=== PATIENT | female | born 1950 | race African-American/Black ===

== ENCOUNTER 2016-12-09 01:36 | Inpatient (IN) | payer OTHER, MEDICARE ==
[2016-12-09] VITALS (41 sets, daily range): BP systolic 143–212; BP diastolic 76–124; PULSE 58–113; RESP 15–32; TEMP 97.6–98.4; O2SAT 93–98
[~2016-12-09] VITALS: Ht 160 cm; Wt 104.0 kg
--- NOTE | 2016-12-09 02:11 | PD ---
HPI Chief Complaint: Respiratory Symptoms Time Seen by Provider: 02:07 Travel History International Travel<30 days: No Contact w/Intl Traveler<30days: No Traveled to known affect area: No History of Present Illness HPI 66-year-old female with history of hypertension, presents to the ER today because she states that she woke up short of breath. She denies any chest pains , fevers, coughing, or any other symptoms. She denies any previous history of shortness of breath. Modifying Factors: None Associated Signs & Symptoms: Shortness of breath Risk Factors: None PFSH Past Medical History Hypertension: Yes Past Surgical History Surgical History: No Previous Surgery Social History Alcohol Use: No Tobacco Use: No Substance Use: No Allergies-Medications (Allergen,Severity, Reaction): Coded Allergies: No Known Allergies (Unverified , 12/09/16) Reported Meds & Prescriptions Reported Meds & Active Scripts Active No Active Prescriptions or Reported Medications Review of Systems Except as stated in HPI: all other systems reviewed are Neg Physical Exam Narrative GENERAL: Well-developed elderly -[place] female patient currently in mild respiratory distress. Awake and oriented 3. SKIN: Focused skin assessment warm/dry. HEAD: Atraumatic. Normocephalic. EYES: Pupils equal and round. No scleral icterus. No injection or drainage. ENT: No nasal bleeding or discharge. Mucous membranes pink and moist. NECK: Trachea midline. No JVD. CARDIOVASCULAR: Regular rate and rhythm. No murmur appreciated. RESPIRATORY: No accessory muscle use. Clear to auscultation. Breath sounds equal bilaterally. No crackles or wheezes. GASTROINTESTINAL: Abdomen soft, non-tender, nondistended. Hepatic and splenic margins not palpable. MUSCULOSKELETAL: No obvious deformities. No clubbing. No cyanosis. No edema. NEUROLOGICAL: Awake and alert. No obvious cranial nerve deficits. Motor grossly within normal limits. Normal speech. PSYCHIATRIC: Appropriate mood and affect; insight and judgment normal. Data Data Last Documented VS Vital Signs Date Time Temp Pulse Resp B/P Pulse Ox O2 Delivery O2 Flow Rate FiO2 12/09/16 03:08 89 16 209/104 96 Room Air 12/09/16 01:39 98.4 Orders Complete Blood Count With Diff (12/09/16 02:07) Comprehensive Metabolic Panel (12/09/16 02:07) B-Type Natriuretic Peptide (12/09/16 02:07) D-Dimer (12/09/16 02:07) Act Partial Throm Time (Ptt) (12/09/16 02:07) Prothrombin Time / Inr (Pt) (12/09/16 02:07) Ckmb (Isoenzyme) Profile (12/09/16 02:07) Troponin I (12/09/16 02:07) Iv Access Insert/Monitor (12/09/16 02:07) Electrocardiogram (12/09/16 02:07) Ecg Monitoring (12/09/16 02:07) Oximetry (12/09/16 02:07) Oxygen Administration (12/09/16 02:07) Chest, Single Ap (12/09/16 02:07) Sodium Chloride 0.9% Flush (Ns Flush) (12/09/16 02:15) Nitroglycerin 2% Oint (Nitroglycerin 2% (12/09/16 02:15) CKMB (12/09/16 02:15) CKMB% (12/09/16 02:15) Ct Pulmonary Angiogram (12/09/16 03:12) Iohexol 350 Inj (Omnipaque 350 Inj) (12/09/16 03:35) Aspirin (Aspirin) (12/09/16 04:00) Metoprolol Tartrate Inj (Lopressor Inj) (12/09/16 04:00) Labs Laboratory Tests Test 12/09/16 02:15 White Blood Count 18.5 TH/MM3 Red Blood Count 4.43 MIL/MM3 Hemoglobin 13.0 GM/DL Hematocrit 39.3 % Mean Corpuscular Volume 88.6 FL Mean Corpuscular Hemoglobin 29.3 PG Mean Corpuscular Hemoglobin 33.1 % Concent Red Cell Distribution Width 14.5 % Platelet Count 251 TH/MM3 Mean Platelet Volume 8.9 FL Neutrophils (%) (Auto) 20.8 % Lymphocytes (%) (Auto) 72.5 % Monocytes (%) (Auto) 5.6 % Eosinophils (%) (Auto) 0.7 % Basophils (%) (Auto) 0.4 % Neutrophils # (Auto) 3.8 TH/MM3 Lymphocytes # (Auto) 13.4 TH/MM3 Monocytes # (Auto) 1.0 TH/MM3 Eosinophils # (Auto) 0.1 TH/MM3 Basophils # (Auto) 0.1 TH/MM3 CBC Comment AUTO DIFF Differential Total Cells 100 Counted Neutrophils % (Manual) 26 % Lymphocytes % 66 % Monocytes % 6 % Eosinophils % 2 % Neutrophils # (Manual) 4.8 TH/MM3 Differential Comment FINAL DIFF MANUAL Atypical Lymphocytes % Platelet Estimate NORMAL Platelet Morphology Comment NORMAL [place] Bodies PRESENT Acanthocytes OCC Prothrombin Time 10.7 SEC Prothromb Time International 1.0 RATIO Ratio Activated Partial 28.7 SEC Thromboplast Time D-Dimer Quantitative (PE/DVT) 1.67 MG/L FEU Sodium Level 141 MEQ/L Potassium Level 3.7 MEQ/L Chloride Level 107 MEQ/L Carbon Dioxide Level 27.3 MEQ/L Anion Gap 7 MEQ/L Blood Urea Nitrogen 19 MG/DL Creatinine 0.95 MG/DL Estimat Glomerular Filtration 59 ML/MIN Rate Random Glucose 102 MG/DL Calcium Level 8.1 MG/DL Total Bilirubin 0.5 MG/DL Aspartate Amino Transf 26 U/L (AST/SGOT) Alanine Aminotransferase 22 U/L (ALT/SGPT) Alkaline Phosphatase 96 U/L Total Creatine Kinase 385 U/L Creatine Kinase MB 2.9 NG/ML Creatine Kinase MB % 0.8 % Troponin I 0.14 NG/ML B-Type Natriuretic Peptide 60 PG/ML Total Protein 7.7 GM/DL Albumin 3.5 GM/DL MDM Medical Decision Making Medical Screen Exam Complete: Yes Emergency Medical Condition: Yes Medical Record Reviewed: Yes Interpretation(s) EKG shows NSR, no ST elevation or depression, and no arrhythmias. No significant T-wave inversions. Laboratory Tests Test 12/09/16 02:15 White Blood Count 18.5 TH/MM3 (4.0-11.0) Lymphocytes (%) (Auto) 72.5 % (9.0-44.0) Lymphocytes # (Auto) 13.4 TH/MM3 (1.0-4.8) Monocytes # (Auto) 1.0 TH/MM3 (0-0.9) Lymphocytes % 66 % (9-44) Acanthocytes OCC (NORMAL) D-Dimer Quantitative (PE/DVT) 1.67 MG/L FEU (0.00-0.50) Blood Urea Nitrogen 19 MG/DL (7-18) Estimat Glomerular Filtration 59 ML/MIN (>89) Rate Calcium Level 8.1 MG/DL (8.5-10.1) Total Creatine Kinase 385 U/L (26-192) Troponin I 0.14 NG/ML (0.02-0.05) Last [address] Angiography 12/09/16311 Signed Impressions: Service Date/Time: November 03:23 - CONCLUSION: 1. No pulmonary embolus. 2. Left anterior descending coronary artery calcification. 3. Mild atelectasis and chronic interstitial changes of the visualized lung bases. 4. Eventration of the right hemidiaphragm. 5. Hepatic cysts. Jarrett Jimenez MD Chest X-Ray 12/09/167 Signed Impressions: Service Date/Time: November 02:24 - CONCLUSION: 1. Trace bibasilar atelectasis. No pneumonic infiltrate demonstrated. 2. Borderline cardiomegaly. 3. Tortuous thoracic aorta. 4. Age-indeterminate right hemidiaphragm elevation. Jarrett Jimenez MD Differential Diagnosis Shortness of breathanxiety versus dysrhythmias versus pneumonia versus bronchitis versus COPD versus CHF versus hypertensive urgency Narrative Course Lab work shows troponin elevations. EKG did not show any signs of acute ST-T elevations. Her dimer was fairly elevated. Aspirin and nitroglycerin had been given in the ER. Blood pressure did not respond significantly to nitroglycerin and metoprolol was also ordered. A CT was done to rule out PE and did not show any signs of PE. At this point, my plan would be to admit her for further treatment of her blood pressure elevations and evaluation for underlying cardiac issues related to her blood pressure, possible ID. Case was discussed with Dr. Cobian for admission. Diagnosis Primary Impression: Hypertensive urgency Additional Impression: Elevated troponin Admitting Information Admitting Physician Requests: Admit Scripts No Active Prescriptions or Reported Meds Alma Michelle MD Dec 09, 2016 02:11
[2016-12-09] MEDS ORDERED: NITROGLYCERIN 2% OINT 1 GM PACKET TOPICAL ONE (02:15)
--- NOTE | 2016-12-09 02:33 | RADRPT ---
EXAM DATE/TIME: 12/09/2016 02:24 [facility] COMPARISON: No previous studies available for comparison. INDICATIONS : Weak and general illness. MEDICAL HISTORY : Hypertension. SURGICAL HISTORY : None. ENCOUNTER: Initial ACUITY: 1 day PAIN SCORE: 0/10 LOCATION: Bilateral chest FINDINGS: I don't have any priors. Trace bibasilar atelectasis. Age-indeterminate elevation seen of the right h emidiaphragm. No infiltrate, effusion or pneumothorax. Heart size upper limits of normal. Thoracic aorta is tortuous. CONCLUSION: 1. Trace bibasilar atelectasis. No pneumonic infiltrate demonstrated. 2. Borderline cardiomegaly. 3. Tortuous thoracic aorta. 4. Age-indeterminate right hemidiaphragm elevation. Jarrett Jimenez MD on December 09, 2016 at 2:30 Board Certified Radiologist. This report was verified electronically.
[2016-12-09] MEDS: SODIUM CHLORIDE 0.9% FLUSH 10 ML FLUSH IVF PRN ×2 (02:40→04:18)
[2016-12-09 02:44] LABS: AUTOMATED NEUTROPHIL # 3.8 TH/MM3 (1.8-7.7); BASOPHIL # 0.1 TH/MM3 (0-0.2); BASOPHIL % 0.4 % (0.0-2.0); EOSINOPHIL # 0.1 TH/MM3 (0-0.4); EOSINOPHIL % 0.7 % (0.0-4.0); HEMATOCRIT 39.3 % (35.0-46.0); LYMPH % 72.5 % (9.0-44.0); LYMPHOCYTE # 13.4 TH/MM3 (1.0-4.8); MEAN CELL VOLUME 88.6 FL (80.0-100.0); MEAN CORPUSCULAR HEMOGLOBIN 29.3 PG (27.0-34.0); MEAN CORPUSCULAR HGB CONC 33.1 % (32.0-36.0); MONO % 5.6 % (0.0-8.0); NEUT % 20.8 % (16.0-70.0); PLATELET COUNT 251 TH/MM3 (150-450); RED BLOOD COUNT 4.43 MIL/MM3 (4.00-5.30); RED CELL DISTRIBUTION WIDTH 14.5 % (11.6-17.2); WHITE BLOOD COUNT 18.5 TH/MM3 (4.0-11.0)
[2016-12-09 02:45] LABS: HEMO FLAGS AUTO DIFF
[2016-12-09 02:47] LABS: ALT (GPT) 22 U/L (10-53); ANION GAP 7 MEQ/L (5-15); AST (GOT) 26 U/L (15-37); BICARBONATE 27.3 MEQ/L (21.0-32.0); BLOOD UREA NITROGEN 19 MG/DL (7-18); CHLORIDE 107 MEQ/L (98-107); GLOMERULAR FILTRATION RATE 59 ML/MIN (>89); SODIUM (NA) 141 MEQ/L (136-145)
[2016-12-09 02:48] LABS: POTASSIUM 3.7 MEQ/L (3.5-5.1)
[2016-12-09 02:54] LABS: ALKALINE PHOSPHATASE 96 U/L (45-117); CREATINE KINASE 385 U/L (26-192); TOTAL BILIRUBIN ADULT 0.5 MG/DL (0.2-1.0)
[2016-12-09 02:57] LABS: APTT (PATIENT) 28.7 SEC (24.3-30.1); PROTHROMBIN TIME - PATIENT 10.7 SEC (9.8-11.6)
[2016-12-09 03:06] LABS: CKMB 2.9 NG/ML (0.5-3.6)
[2016-12-09 03:18] LABS: EOSINOPHILS 2 % (0-4); NEUTROPHIL # MANUAL DIFF 4.8 TH/MM3 (1.8-7.7); POLYS (SEG NEUTROPHILS) 26 % (16-70); SCAN/DIFF FINAL DIFF MANUAL; WBC DIFF SAMPLE 100
[2016-12-09 03:20] LABS: ACANTHOCYTES OCC (NORMAL); HOWELL-JOLLY BODIES PRESENT (NONE SEEN); PLATELET ESTIMATE SMEAR NORMAL (NORMAL); PLATELET MORPHOLOGY NORMAL (NORMAL)
[2016-12-09] MEDS ORDERED: IOHEXOL 350 MG/ML 10 ML VIAL (for RAD DIAG) IV ONE (03:35)
--- NOTE | 2016-12-09 03:51 | RADRPT ---
EXAM DATE/TIME: 12/09/2016 03:23 [facility] COMPARISON: No previous studies available for comparison. INDICATIONS : Woke up short of breath IV CONTRAST: 75 cc Omnipaque 350 (iohexol) IV RADIATION DOSE: 23.08 CTDIvol (mGy) MEDICAL HISTORY : Hypertension. SURGICAL HISTORY : None. ENCOUNTER: Initial ACUITY: 1 day PAIN SCALE: 0/10 LOCATION: Bilateral chest TECHNIQUE: Volumetric scanning of the chest was performed using a pulmonary embolism protocol MIP images were re constructed. Using automated exposure control and adjustment of the mA and/or kV according to patien t size, radiation dose was kept as low as reasonably achievable to obtain optimal diagnostic quality images. FINDINGS: No pulmonary embolus. Heart size within normal limits. Coronary artery calcification noted of the left anterior descending. Mild atelectasis and chronic appearing interstitial changes are seen in both lung bases. No infiltrat e, effusion or pneumothorax. Right hemidiaphragm is eventrated. There is no mediastinal or hilar lymphadenopathy seen. Upper abdomen partly included on this study. There are cysts of the liver noted, the largest about 8. 6 cm near the dome of the right hepatic lobe. Most of the other cysts seen are small. CONCLUSION: 1. No pulmonary embolus. 2. Left anterior descending coronary artery calcification. 3. Mild atelectasis and chronic interstitial changes of the visualized lung bases. 4. Eventration of the right hemidiaphragm. 5. Hepatic cysts. Jarrett Jimenez MD on December 09, 2016 at 3:46 Board Certified Radiologist. This report was verified electronically.
[2016-12-09] MEDS ORDERED: ASPIRIN 325 MG TAB PO ONE (04:00)
[2016-12-09] MEDS ORDERED: METOPROLOL TARTRATE 5 MG/5 ML VIAL IV PUSH ONE (04:00)
[2016-12-09] MEDS ORDERED: NALOXONE HCL 0.4 MG/ML AMP IV PRN (04:45)
--- NOTE | 2016-12-09 05:04 | HHI.HP ---
[facility] No Primary Care Physician Admission Diagnosis hypertensive urgency/elevated troponin Diagnoses: Chief Complaint: "I just didn't feel right." labored breathing Travel History International Travel<30 Days: No Contact w/Intl Traveler <30 Da: No Traveled to Known Affected Are: No History of Present Illness Written by Sonia Baez, acting as scribe for Dr. Cobian on 12/09/16 at 04: 58. This is a 66 year old female patient with a past medical history which includes hypertension. Patient reports she currently does not have a primary care provider and has not on any medications on a daily basis. Patient reports that when she woke up around 0100 and she, "just didn't feel right." Patient reports that, "maybe my breathing was labored." "I guess my intuition had brought me here." Patient remains a throughout the interview process and offers no specific complaints. Denies headache, changes in vision, feeling light headed, dizziness, fevers, cough, N/V, chest pain, black stool, red stool, dysuria, frequent urination or diaphoresis. Blood pressure checked at bilateral upper extremities there is no significant difference noted. BP on arrival 212/124 heart rate 113, EKG reveals sinus rhythm first degree AV block rate 93 bpm with LVH Review of Systems ROS Limitations: Poor Historian Except as stated in HPI: all other systems reviewed are Neg Past Family Social History Past Medical History HTN Past Surgical History hysterectomy Reported Medications No Active Prescriptions or Reported Medications Allergies: Coded Allergies: No Known Allergies (Unverified , 12/09/16) Active Ordered Medications Current Medications Medications (Trade) Dose Ordered Sig/Saul Route Start Time Stop Time Status Last Admin (NS Flush) 2 ml UNSCH PRN IV FLUSH 12/09/16 04:45 (NS Flush) 2 ml BID IV FLUSH 12/09/16 09:00 (Narcan Inj) 0.4 mg UNSCH PRN IV 12/09/16 04:45 (Nitroglycerin 2% Oint) 1 inch Q6HR TOPICAL 12/09/16 06:00 (Lopressor Inj) 5 mg Q6H PRN IV PUSH 12/09/16 04:45 Family History HTN and DM runs in the family Social History Denies ETOH use, tobacco use or illicit drug use Physical Exam Vital Signs Vital Signs Date Time Temp Pulse Resp B/P Pulse Ox O2 Delivery O2 Flow Rate FiO2 12/09/16 03:08 89 16 209/104 96 Room Air 12/09/16 01:39 98.4 113 18 212/124 96 Room Air Physical Exam GENERAL: This is a well-nourished, well-developed patient, in no apparent distress. SKIN: No rashes, ecchymoses or lesions. Cool and dry. HEAD: Atraumatic. Normocephalic. No temporal or scalp tenderness. EYES: Extraocular motions intact. No scleral icterus. No injection or drainage. CARDIOVASCULAR: Regular rate and rhythm without murmurs, gallops, or rubs. RESPIRATORY: Clear to auscultation. Breath sounds equal bilaterally. No wheezes , rales, or rhonchi. GASTROINTESTINAL: Abdomen soft, non-tender, nondistended. No guarding. MUSCULOSKELETAL: Extremities without clubbing, cyanosis, or edema. No joint tenderness, effusion, or edema noted. No calf tenderness. Negative Homans sign bilaterally. NEUROLOGICAL: Awake and alert. No focal deficits noted. Motor and sensory grossly within normal limits. Five out of 5 muscle strength in all muscle groups. Normal speech. Laboratory Laboratory Tests Test 12/09/16 02:15 White Blood Count 18.5 Red Blood Count 4.43 Hemoglobin 13.0 Hematocrit 39.3 Mean Corpuscular Volume 88.6 Mean Corpuscular Hemoglobin 29.3 Mean Corpuscular Hemoglobin 33.1 Concent Red Cell Distribution Width 14.5 Platelet Count 251 Mean Platelet Volume 8.9 Neutrophils (%) (Auto) 20.8 Lymphocytes (%) (Auto) 72.5 Monocytes (%) (Auto) 5.6 Eosinophils (%) (Auto) 0.7 Basophils (%) (Auto) 0.4 Neutrophils # (Auto) 3.8 Lymphocytes # (Auto) 13.4 Monocytes # (Auto) 1.0 Eosinophils # (Auto) 0.1 Basophils # (Auto) 0.1 CBC Comment AUTO DIFF Differential Total Cells 100 Counted Neutrophils % (Manual) 26 Lymphocytes % 66 Monocytes % 6 Eosinophils % 2 Neutrophils # (Manual) 4.8 Differential Comment FINAL DIFF MANUAL Atypical Lymphocytes Platelet Estimate NORMAL Platelet Morphology Comment NORMAL [place] Bodies PRESENT Acanthocytes OCC Prothrombin Time 10.7 Prothromb Time International 1.0 Ratio Activated Partial 28.7 Thromboplast Time D-Dimer Quantitative (PE/DVT) 1.67 Sodium Level 141 Potassium Level 3.7 Chloride Level 107 Carbon Dioxide Level 27.3 Anion Gap 7 Blood Urea Nitrogen 19 Creatinine 0.95 Estimat Glomerular Filtration 59 Rate Random Glucose 102 Calcium Level 8.1 Total Bilirubin 0.5 Aspartate Amino Transf 26 (AST/SGOT) Alanine Aminotransferase 22 (ALT/SGPT) Alkaline Phosphatase 96 Total Creatine Kinase 385 Creatine Kinase MB 2.9 Creatine Kinase MB % 0.8 Troponin I 0.14 B-Type Natriuretic Peptide 60 Total Protein 7.7 Albumin 3.5 Result Diagram: 12/09/1621412/09/16214 Assessment and Plan Problem List: (1) Hypertensive urgency ICD Code: I16.0 Status: Acute (2) Elevated troponin ICD Code: R74.8 Status: Acute Assessment and Plan HTN urgency Patient has received metoprolol 5 mg IV push as well as nitroglycerin paste 1 inch with minimal improvement in blood pressure Will continue metoprolol IV and Nitropaste Also start hydralazine 10 mg IV every 30 minutes as needed for blood pressure greater than 170/90 Continue to monitor blood pressure trend Serial neuro checks elevated troponin likely related to hypertensive urgency r/o ACS Initial troponin 0.14 continue serial troponin serial EKG continuous cardiac produce runner D-dimer elevated at 1.67 CT angiogram negative for pulmonary embolism DVT prophylaxis with SCDs Discussed with ER provider, nursing and patient Physician Certification 2 Midnight Certification Type: Admission for Inpatient Services Order for Inpatient Services The services are ordered in accordance with Medicare regulations or non- Medicare payer requirements, as applicable. In the case of services not specified as inpatient-only, they are appropriately provided as inpatient services in accordance with the 2-midnight benchmark. Estimated LOS (days): 3 days is the estimated time the patient will need to remain in the hospital, assuming treatment plan goals are met and no additional complications. Post-Hospital Plan: Home Sonia Baez Dec 09, 2016 05:04
[2016-12-09] MEDS: SODIUM CHLORIDE 0.9% FLUSH 10 ML FLUSH IV FLUSH PRN ×2 (05:41→07:04)
[2016-12-09] MEDS: hydrALAZINE HCL 20 MG/ML VIAL IV PUSH PRN ×3 (05:41→14:45)
[2016-12-09] MEDS ORDERED: NITROGLYCERIN 2% OINT 1 GM PACKET TOPICAL SCH (06:00)
[2016-12-09] MEDS: METOPROLOL TARTRATE 5 MG/5 ML VIAL IV PUSH PRN (08:11)
[2016-12-09] MEDS: SODIUM CHLORIDE 0.9% FLUSH 10 ML FLUSH IV FLUSH SCH ×2 (08:11→21:00)
[2016-12-09] MEDS: LISINOPRIL 20 MG TAB PO SCH ×2 (09:00→10:25)
[2016-12-09 11:40] LABS: CKMB 2.8 NG/ML (0.5-3.6)
--- NOTE | 2016-12-09 11:51 | RADRPT ---
EXAM DATE/TIME: 12/09/2016 11:38 [facility] COMPARISON: CT PULMONARY ANGIOGRAM, December 09, 2016, 3:23. INDICATIONS : Hypertension. Rule out intercranial bleed. RADIATION DOSE: 36.42 CTDIvol (mGy) MEDICAL HISTORY : Hypertension. SURGICAL HISTORY : None. ENCOUNTER: Initial ACUITY: 1 day PAIN SCALE: 0/10 LOCATION: cranial TECHNIQUE: Multiple contiguous axial images were obtained of the head. Using automated exposure control and adj ustment of the mA and/or kV according to patient size, radiation dose was kept as low as reasonably a chievable to obtain optimal diagnostic quality images. FINDINGS: CEREBRUM: The ventricles are normal for age. No evidence of midline shift, mass lesion, hemorrhage or acute in farction. No extra-axial fluid collections are seen. POSTERIOR FOSSA: The cerebellum and brainstem are intact. The 4th ventricle is midline. The cerebellopontine angle i s unremarkable. EXTRACRANIAL: The visualized portion of the orbits is intact. SKULL: The calvaria is intact. No evidence of skull fracture. CONCLUSION: 1. No acute intracranial abnormality identified. Ty Castro MD on December 09, 2016 at 11:47 Board Certified Radiologist. This report was verified electronically.
--- NOTE | 2016-12-09 13:48 | EKG ---
Date Performed: 12/09/2016 Time Performed: 02:28:17 PTAGE: 66 years EKG: Sinus rhythm WITH FIRST DEGREE AV BLOCK BORDERLINE LEFT AXIS DEVIATION MINIMAL VOLTAGE CRITERIA FOR LVH, CONSIDER NORMAL VARIANT NONSPECIFIC T-WAVE ABNORMALITY ABNORMAL ECG NO PREVIOUS TRACING DOCTOR: Sasha Christian Interpretating Date/Time 12/09/2016 13:43:44
[2016-12-09] MEDS ORDERED: CHLORHEXIDINE GLUCONATE 2 % 1 PACK (2 CLOTHS)(extra cloths) TOPICAL PRN (14:30)
--- NOTE | 2016-12-09 14:33 | EKG ---
Date Performed: 12/09/2016 Time Performed: 10:54:03 PTAGE: 66 years EKG: Sinus rhythm WITH FIRST DEGREE AV BLOCK BORDERLINE LEFT AXIS DEVIATION MODERATE T-WAVE ABNORMALITY, CONSIDER ANTE ROLATERAL ISCHEMIA ABNORMAL ECG Compared to PREVIOUS TRACING , anterolateral T-wave changes are new. Acute myocardial ischemia needs to be excluded clinically. PREVIOUS TRACIN12/09/2016 02.28 DOCTOR: Sasha Christian Interpretating Date/Time 12/09/2016 14:31:06
--- NOTE | 2016-12-09 14:53 | HHI.PR ---
Addendum to Inpatient Note Addendum Reason: Additional Documentation Additional Information The pt was resting comfortably. She said she was feeling a lot better. She says she'll try not to add salt to her food. She said she had a headache which is much improved. Blood pressure remains elevated but is better. Continue lisinopril and titrate as needed. Hydralazine and Lopressor IV as needed. Discussed with ICU nurse. Javier Gracia DO Dec 09, 2016 14:53
[2016-12-09 18:01] LABS: CKMB 2.5 NG/ML (0.5-3.6)
[2016-12-10] VITALS (12 sets, daily range): BP systolic 129–190; BP diastolic 59–101; PULSE 65–89; RESP 13–28; TEMP 98.2–98.5; O2SAT 93–95
[2016-12-10] MEDS: CHLORHEXIDINE GLUCONATE 2 % 1 PACK (2 CLOTHS)(taper/protocol) TOPICAL SCH (04:00)
[2016-12-10 05:59] LABS: BASOPHIL % 0.4 % (0.0-2.0); EOSINOPHIL % 0.2 % (0.0-4.0); HEMATOCRIT 37.8 % (35.0-46.0); LYMPH % 48.4 % (9.0-44.0); LYMPHOCYTE # 6.4 TH/MM3 (1.0-4.8); MEAN CELL VOLUME 88.4 FL (80.0-100.0); MEAN CORPUSCULAR HEMOGLOBIN 29.1 PG (27.0-34.0); MEAN CORPUSCULAR HGB CONC 32.9 % (32.0-36.0); MONO % 5.9 % (0.0-8.0); NEUT % 45.1 % (16.0-70.0); PLATELET COUNT 241 TH/MM3 (150-450); RED BLOOD COUNT 4.28 MIL/MM3 (4.00-5.30); RED CELL DISTRIBUTION WIDTH 14.8 % (11.6-17.2); WHITE BLOOD COUNT 13.3 TH/MM3 (4.0-11.0)
[2016-12-10 06:10] LABS: HEMO FLAGS AUTO DIFF
[2016-12-10 06:22] LABS: BICARBONATE 26.7 MEQ/L (21.0-32.0); POTASSIUM 3.1 MEQ/L (3.5-5.1)
[2016-12-10 07:04] LABS: EOSINOPHILS 1 % (0-4); NEUTROPHIL # MANUAL DIFF 6.5 TH/MM3 (1.8-7.7); POLYS (SEG NEUTROPHILS) 49 % (16-70); WBC DIFF SAMPLE 100
[2016-12-10 07:05] LABS: HOWELL-JOLLY BODIES PRESENT (NONE SEEN); KERATOCYTES OCC (NORMAL); PLATELET ESTIMATE SMEAR NORMAL (NORMAL)
[2016-12-10 07:06] LABS: PLATELET MORPHOLOGY NORMAL (NORMAL); SCAN/DIFF FINAL DIFF MANUAL
[2016-12-10] MEDS: LISINOPRIL 20 MG TAB PO SCH (08:55)
[2016-12-10] MEDS: SODIUM CHLORIDE 0.9% FLUSH 10 ML FLUSH IV FLUSH SCH ×2 (08:55→21:00)
[2016-12-10] MEDS: POTASSIUM CHLOR 20 MEQ PREMIX 100 ML IV SCH ×2 (12:32→16:28)
--- NOTE | 2016-12-10 13:00 | HHI.PR ---
Subjective Remarks The patient was resting comfortably in bed. She says she feels a lot better compared to when she came to the hospital. She had no acute complaints. She said her neck was bothering her a little but that was from sleeping in a weird position and it's improving. Discussed with the patient and her family at the bedside. Objective Vitals Vital Signs Date Time Temp Pulse Resp B/P Pulse Ox O2 Delivery O2 Flow Rate FiO2 12/10/16 06:00 67 12/10/16 04:00 74 12/10/16 04:00 98.2 74 15 139/73 93 12/10/16 02:00 89 12/10/16 00:00 80 12/10/16 00:00 98.4 80 19 94 12/09/16 22:00 74 12/09/16 20:00 98.1 87 21 165/90 96 12/09/16 20:00 87 12/09/16 18:00 74 12/09/16 16:00 97.6 90 16 160/81 93 12/09/16 16:00 90 12/09/16 15:50 104 32 152/76 95 12/09/16 15:40 93 28 163/82 96 12/09/16 15:30 100 20 163/85 96 12/09/16 15:20 97 20 150/78 95 12/09/16 15:10 76 16 143/76 95 12/09/16 15:00 78 18 170/83 94 12/09/16 14:50 68 20 161/101 97 12/09/16 14:40 68 20 166/103 97 12/09/16 14:30 69 23 179/105 97 12/09/16 14:20 71 20 182/99 94 12/09/16 14:10 73 20 172/86 96 12/09/16 14:00 70 23 171/92 97 12/09/16 14:00 70 12/09/16 13:30 60 15 161/87 96 12/09/16 13:20 66 25 157/88 97 12/09/16 13:10 58 15 159/86 97 12/09/16 13:00 66 18 163/91 97 I/O 12/09/16 12/09/16 12/09/16 12/10/16 12/10/16 12/10/16 07:00 15:00 23:00 07:00 15:00 23:00 Intake Total 120 ml Output Total 500 ml 600 ml Balance -380 ml -600 ml Intake Oral 120 ml Output Urine Total 500 ml 600 ml # Voids 3 2 Result Diagram: 12/10/1652112/10/[address] Angiography 12/09/16311 Signed Impressions: Service Date/Time: November 03:23 - CONCLUSION: 1. No pulmonary embolus. 2. Left anterior descending coronary artery calcification. 3. Mild atelectasis and chronic interstitial changes of the visualized lung bases. 4. Eventration of the right hemidiaphragm. 5. Hepatic cysts. Jarrett Jimenez MD Chest X-Ray 12/09/167 Signed Impressions: Service Date/Time: November 02:24 - CONCLUSION: 1. Trace bibasilar atelectasis. No pneumonic infiltrate demonstrated. 2. Borderline cardiomegaly. 3. Tortuous thoracic aorta. 4. Age-indeterminate right hemidiaphragm elevation. Jarrett Jimenez MD Head CT 12/09/16 0000 Signed Impressions: Service Date/Time: November 11:38 - CONCLUSION: 1. No acute intracranial abnormality identified. Ty Castro MD Objective Remarks GENERAL: This is a well-nourished, well-developed patient, in no apparent distress. SKIN: No rashes, ecchymoses or lesions. Cool and dry. HEAD: Atraumatic. Normocephalic. No temporal or scalp tenderness. EYES: Extraocular motions intact. No scleral icterus. No injection or drainage. CARDIOVASCULAR: Regular rate and rhythm without murmurs, gallops, or rubs. RESPIRATORY: Clear to auscultation. Breath sounds equal bilaterally. No wheezes , rales, or rhonchi. GASTROINTESTINAL: Abdomen soft, non-tender, nondistended. No guarding. MUSCULOSKELETAL: Extremities without clubbing, cyanosis, or edema. No joint tenderness, effusion, or edema noted. NEUROLOGICAL: Awake and alert. No focal deficits noted. Motor and sensory grossly within normal limits. Five out of 5 muscle strength in all muscle groups. Normal speech. PSYCH: Mood and affect appropriate. Medications and IVs Current Medications Medications (Trade) Dose Ordered Sig/Saul Route Start Time Stop Time Status Last Admin (NS Flush) 2 ml UNSCH PRN IV FLUSH 12/09/16 04:45 12/09/16 07:04 (NS Flush) 2 ml BID IV FLUSH 12/09/16 09:00 12/10/16 08:55 (Narcan Inj) 0.4 mg UNSCH PRN IV 12/09/16 04:45 (Lopressor Inj) 5 mg Q6H PRN IV PUSH 12/09/16 04:45 12/09/16 08:11 (Apresoline Inj) 10 mg Q30M PRN IV PUSH 12/09/16 05:30 12/09/16 14:45 (Prinivil) 20 mg DAILY PO 12/09/16 08:30 12/10/16 08:55 Miscellaneous Information Patient in critical care unit? Ass... [id number] 12/09/16 14:30 12/09/16 14:20 (Chlorhexidine 2% Cloth) 3 pack DAILY@04 TOPICAL 12/10/16 04:00 12/14/16 04:01 12/10/16 04:00 Chlorhexidine Gluconate 3 pack 3 pack UNSCH PRN TOPICAL 12/09/16 14:30 12/14/16 14:18 (KCl 20 Meq Premix Inj) 100 ml @ 50 mls/hr Q2H IV 12/10/16 10:00 12/10/16 13:59 12/10/16 12:32 A/P Problem List: (1) Hypertensive urgency ICD Code: I16.0 Status: Acute (2) Elevated troponin ICD Code: R74.8 Status: Acute Assessment and Plan HTN urgency Blood pressure improved on lisinopril, however, still becomes elevated at times. - Will continue metoprolol IV and hydralazine IV as needed. - continue lisinopril 20 mg daily and increase as needed. - educated pt on lifestyle modifications. Elevated troponin Likely related to hypertensive urgency. Currently at 0.19. - repeat EKG. - continuous cardiac environmental monitoring technician. - blood pressure control. - cardiology consult requested. Leukocytosis Possibly a stress reaction. Decreasing. Afebrile. CXR and CT chest negative for infection. - check a UA. - continue to trend. Hypokalemia Unsure of etiology. - replete with IV KCl and monitor. D-dimer elevated at 1.67 CT angiogram negative for pulmonary embolism. - no further work-up. DVT prophylaxis with Lovenox Discharge Planning Awaiting cardiac evaluation and blood pressure improvement. Anticipate discharge in the morning Javier Gracia DO Dec 10, 2016 13:00
[2016-12-10] MEDS: METOPROLOL TARTRATE 5 MG/5 ML VIAL IV PUSH PRN (13:21)
[2016-12-10] MEDS ORDERED: PILL SPLITTER OTHER PRN (13:30)
[2016-12-10] MEDS ORDERED: LISINOPRIL 10 MG TAB PO ONE (14:00)
--- NOTE | 2016-12-10 15:32 | MB ---
cc: LASHAY VERDUZCO DATE OF CONSULTATION 12/10/16 DATE OF 1950 REASON FOR CONSULTATION Elevated troponins. HISTORY OF PRESENT ILLNESS 66-year-old female with past medical history significant for hypertension, that was admitted to the hospital with vague complaints. Found to have a hypertensive urgency. 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 She does not take any cardiac medications at home. Blood pressure on admission was over 200 systolic and 100 diastolic. She has been started on blood pressure medications with some improvement of the blood pressure, however, the blood pressure is still uncontrolled. Blood work here revealed mildly elevated troponin. Cardiology has been consulted for further management and evaluation. Review of systems negative except for what is mentioned in the HPI. PAST MEDICAL HISTORY past medical history of hypertension. PAST SURGICAL HISTORY Hysterectomy. ALLERGIES NO KNOWN DRUG ALLERGIES. MEDICATIONS Home medications none. FAMILY HISTORY Hypertension and diabetes. SOCIAL HISTORY Denies alcohol use, tobacco abuse or illicit drug use. PHYSICAL EXAMINATION VITAL SIGNS: Temperature 98, blood pressure 173/85, respiratory rate 20, heart rate 76, O2 sat 100% in room air. GENERAL: Awake, alert, oriented x3 in no acute distress. NECK: No JVD or carotid bruits. HEART: Regular rate, rhythm. No murmurs, rubs or gallops. LUNGS: Clear to auscultation bilaterally. No wheezes or rhonchi or rales. ABDOMEN: Soft, nontender, nondistended. Positive bowel sounds. Obese. EXTREMITIES: No cyanosis, mild +1 edema in the ankles DATA CBC, hemoglobin 12, hematocrit 37, white count 13.3, platelet count 241, INR 1. Electrolytes, sodium 142, potassium 3.1, BUN 11, creatinine 0.85. Troponin 0.15, 0.15 and 0.19. BNP 60. CARDIOLOGY STUDIES EKG normal sinus rhythm with nonspecific ST changes. ASSESSMENT/PLAN 66-year-old female admitted with hypertensive urgency with mildly elevated troponins. No EKG changes. No cardiac complaints. However, her blood pressure is still elevated. Her troponin are minimally elevated and in a plateau these likely due to demand ischemia from the hypertension urgency. No invasive cardiac workup recommended at this time. At this point I will agree to optimize blood pressure medications. Lisinopril should be increased to 40mg PO daily. Add hydrochlorothiazide 25mg p.o. daily, start Aspirin, order Lipid Profile and 2-D echocardiogram to assess LV systolic function. She will need a nuclear stress test to risk stratify for CAD, this can be done on outpatient basis. You can consider doing a renal ultrasound of the arteries if her blood pressure is not controlled after being optimizing three blood pressure medications, one of them being a diuretic. Thank you for the opportunity to take part in the care of this patient. Will follow with you. MD SRIKANTH Cooley/KATI /3:12 PM /3:22 PM MTDAnanya
--- NOTE | 2016-12-10 16:48 | EKG ---
Date Performed: 12/09/2016 Time Performed: 15:43:08 PTAGE: 66 years EKG: SINUS TACHYCARDIA WITH FIRST DEGREE AV BLOCK BORDERLINE LEFT AXIS DEVIATION MODERATE INTRAV ENTRICULAR CONDUCTION DELAY NONSPECIFIC T-WAVE ABNORMALITY ABNORMAL ECG PREVIOUS TRACING : 12/09/2016 10.54 Compared to prior tracing no significant change DOCTOR: Radha Schaeffer Interpretating Date/Time 12/10/2016 16:48:16
[2016-12-10] MEDS: ENOXAPARIN SODIUM 40 MG/0.4 ML SYRINGE SQ SCH (17:22)
[2016-12-10] MEDS: HYDROCHLOROTHIAZIDE 25 MG TAB PO SCH (17:22)
[2016-12-11] VITALS (18 sets, daily range): BP systolic 133–181; BP diastolic 66–97; PULSE 68–101; RESP 0–28; TEMP 98.2–99.2; O2SAT 90–95
[2016-12-11] MEDS: hydrALAZINE HCL 20 MG/ML VIAL IV PUSH PRN ×2 (00:17→09:05)
[2016-12-11] MEDS: CHLORHEXIDINE GLUCONATE 2 % 1 PACK (2 CLOTHS)(taper/protocol) TOPICAL SCH (04:00)
[2016-12-11 06:27] LABS: MEAN CELL VOLUME 88.5 FL (80.0-100.0); MEAN CORPUSCULAR HEMOGLOBIN 29.3 PG (27.0-34.0); MEAN CORPUSCULAR HGB CONC 33.1 % (32.0-36.0); PLATELET COUNT 249 TH/MM3 (150-450); RED BLOOD COUNT 4.52 MIL/MM3 (4.00-5.30); RED CELL DISTRIBUTION WIDTH 14.6 % (11.6-17.2); REVIEW FLAG FINAL; WHITE BLOOD COUNT 12.1 TH/MM3 (4.0-11.0)
[2016-12-11 06:50] LABS: BICARBONATE 25.1 MEQ/L (21.0-32.0); POTASSIUM 3.1 MEQ/L (3.5-5.1)
[2016-12-11 06:51] LABS: MAGNESIUM 2.1 MG/DL (1.5-2.5)
[2016-12-11] MEDS: HYDROCHLOROTHIAZIDE 25 MG TAB PO SCH (08:03)
[2016-12-11] MEDS: SODIUM CHLORIDE 0.9% FLUSH 10 ML FLUSH IV FLUSH SCH ×2 (08:03→21:00)
[2016-12-11] MEDS: LISINOPRIL 20 MG TAB PO SCH (08:04)
[2016-12-11] MEDS: POTASSIUM CHLOR 20 MEQ PREMIX 100 ML IV SCH ×2 (08:58→11:18)
[2016-12-11] MEDS ORDERED: LISINOPRIL 20 MG TAB PO SCH (09:00)
--- NOTE | 2016-12-11 09:40 | PD.CARD.PN ---
Subjective Subjective Remarks no overnight events no CV complaints Objective Medications Current Medications Medications (Trade) Dose Ordered Sig/Saul Route Start Time Stop Time Status Last Admin (NS Flush) 2 ml UNSCH PRN IV FLUSH 12/09/16 04:45 12/09/16 07:04 (NS Flush) 2 ml BID IV FLUSH 12/09/16 09:00 12/11/16 08:03 (Narcan Inj) 0.4 mg UNSCH PRN IV 12/09/16 04:45 (Lopressor Inj) 5 mg Q6H PRN IV PUSH 12/09/16 04:45 12/10/16 13:21 (Apresoline Inj) 10 mg Q30M PRN IV PUSH 12/09/16 05:30 12/11/16 09:05 Miscellaneous Information Patient in critical care unit? Ass... Q361D .XX 12/09/16 14:30 12/09/16 14:20 (Chlorhexidine 2% Cloth) 3 pack DAILY@04 TOPICAL 12/10/16 04:00 12/14/16 04:01 12/11/16 04:00 (Chlorhexidine 2% Cloth) 3 pack UNSCH PRN TOPICAL 12/09/16 14:30 12/14/16 14:18 (Lovenox Inj) 40 mg Q24H SQ 12/10/16 14:00 12/10/16 17:22 (Pill Splitter) 1 ea UNSCH PRN OTHER 12/10/16 13:30 Lisinopril 40 mg 40 mg DAILY PO 12/11/16 09:00 12/11/16 08:04 (KCl 20 Meq Premix Inj) 100 ml @ 50 mls/hr Q2H IV 12/11/16 09:00 12/11/16 12:59 12/11/16 08:58 Vital Signs / I&O Vital Signs Date Time Temp Pulse Resp B/P Pulse Ox O2 Delivery O2 Flow Rate FiO2 12/11/16 06:00 71 12/11/16 04:00 98.5 85 18 148/70 93 12/11/16 04:00 85 12/11/16 02:00 78 12/11/16 00:00 80 12/11/16 00:00 98.2 80 17 155/73 94 12/10/16 22:00 77 12/10/16 20:00 70 12/10/16 20:00 98.4 70 13 190/88 93 12/10/16 16:00 65 19 169/91 95 12/10/16 12:00 98.5 12/10/16 10:00 76 20 173/85 95 I/O 12/10/16 12/10/16 12/10/16 12/11/16 12/11/16 12/11/16 07:00 15:00 23:00 07:00 15:00 23:00 Intake Total 480 ml 417 ml 60 ml Output Total 600 ml Balance -600 ml 480 ml 417 ml 60 ml Intake Oral 480 ml 120 ml 60 ml IV Total 297 ml Output Urine Total 600 ml # Voids 2 3 2 3 # Bowel Movements 0 0 0 Physical Exam GENERAL: Well-nourished, well-developed patient. SKIN: Warm and dry. HEAD: Normocephalic. EYES: No scleral icterus. No injection or drainage. NECK: Supple, trachea midline. No JVD or lymphadenopathy. CARDIOVASCULAR: Regular rate and rhythm without murmurs, gallops, or rubs. RESPIRATORY: Breath sounds equal bilaterally. No accessory muscle use. GASTROINTESTINAL: Abdomen soft, non-tender, nondistended. EXTREMITIES: No cyanosis, or edema. NEUROLOGICAL: Awake, alert, and oriented x 3. Non-focal. Laboratory Laboratory Tests Test 12/10/16 12/10/16 12/11/16 10:53 17:29 04:27 Troponin I 0.19 NG/ML 0.18 NG/ML White Blood Count 12.1 TH/MM3 Red Blood Count 4.52 MIL/MM3 Hemoglobin 13.2 GM/DL Hematocrit 40.0 % Mean Corpuscular Volume 88.5 FL Mean Corpuscular Hemoglobin 29.3 PG Mean Corpuscular Hemoglobin 33.1 % Concent Red Cell Distribution Width 14.6 % Platelet Count 249 TH/MM3 Mean Platelet Volume 9.2 FL Sodium Level 141 MEQ/L Potassium Level 3.1 MEQ/L Chloride Level 104 MEQ/L Carbon Dioxide Level 25.1 MEQ/L Anion Gap 12 MEQ/L Blood Urea Nitrogen 12 MG/DL Creatinine 0.80 MG/DL Estimat Glomerular Filtration 87 ML/MIN Rate Random Glucose 87 MG/DL Calcium Level 8.8 MG/DL Magnesium Level 2.1 MG/DL Imaging Last Impressions CT Angiography 12/09/16311 Signed Impressions: Service Date/Time: November 03:23 - CONCLUSION: 1. No pulmonary embolus. 2. Left anterior descending coronary artery calcification. 3. Mild atelectasis and chronic interstitial changes of the visualized lung bases. 4. Eventration of the right hemidiaphragm. 5. Hepatic cysts. Jarrett Jimenez MD Chest X-Ray 12/09/16 0207 Signed Impressions: Service Date/Time: November 02:24 - CONCLUSION: 1. Trace bibasilar atelectasis. No pneumonic infiltrate demonstrated. 2. Borderline cardiomegaly. 3. Tortuous thoracic aorta. 4. Age-indeterminate right hemidiaphragm elevation. Jarrett Jimenez MD Head CT 12/09/16 0000 Signed Impressions: Service Date/Time: November 11:38 - CONCLUSION: 1. No acute intracranial abnormality identified. Ty Castro MD Assessment and Plan Problem List: (1) Hypertensive urgency Assessment and Plan: -Cont Lisinopril 40mg -Cont HCTZ 25mg PO daily -Start Norvasc 5mg PO daily -Start Aspirin 81mg PO daily -Echo Pending -Avoid electrolytes abnormalities -Lipid Profile (2) Elevated troponin Faisal-Eliezer Marroquin MD Dec 11, 2016 09:40
[2016-12-11] MEDS ORDERED: amLODIPine BESYLATE 5 MG TAB PO SCH (09:45)
[2016-12-11] MEDS ORDERED: ACETAMINOPHEN 325 MG TAB PO PRN (10:15)
[2016-12-11] MEDS: ASPIRIN EC 81 MG TABEC PO SCH (10:24)
[2016-12-11 10:28] LABS: HDL CHOLESTEROL 53.8 MG/DL (40.0-60.0)
--- NOTE | 2016-12-11 10:37 | ECHRPT ---
Indication: CORONARY ATHEROSCLEROSIS CONCLUSIONS Normal left ventricular size. Mild to moderate concentric left ventricular hypertrophy. The left ventricular systolic function is mildly reduced with an estimated ejection fraction in the range of 45- 50%. No regional wall motion abnormalities are present. Doppler parameters are consistent with impaired left ventricular relaxtion (grade 1 diastolic dysfun ction). BP: 173 / 85 HR: 76 Rhythm: Sinus MEASUREMENTS (Male / Female) Normal Values Technical Quality:Fair 2D ECHO LV Diastolic Diameter PLAX 5.6 cm 4.2 - 5.9 / 3.9 - 5.3 cm LV Systolic Diameter PLAX 4.6 cm IVS Diastolic Thickness 1.3 cm 0.6 - 1.0 / 0.6 - 0.9 cm LVPW Diastolic Thickness 1.3 cm 0.6 - 1.0 / 0.6 - 0.9 cm LV Relative Wall Thickness 0.5 LVOT Diameter 2.6 cm Aortic Root Diameter 3.7 cm LA Systolic Diameter LX 2.4 cm 3.0 - 4.0 / 2.7 - 3.8 cm M-MODE AV Cusp Separation MM 2.4 cm DOPPLER AV Peak Velocity 128.0 cm/s AV Peak Gradient 6.6 mmHg AV Mean Gradient 3.0 mmHg AV Velocity Time Integral 23.5 cm LVOT Peak Velocity 85.0 cm/s LVOT Peak Gradient 2.9 mmHg LVOT Velocity Time Integral 14.6 cm LVOT Cardiac Index 2890.6 cm/minm AV Area Cont Eq vti 3.3 cm AV Area Cont Eq pk 3.5 cm Mitral E Point Velocity 51.3 cm/s Mitral A Point Velocity 64.2 cm/s Mitral E to A Ratio 0.8 LV E' Lateral Velocity 7.4 cm/s Mitral E to LV E' Lateral Ratio 6.9 LV E' Septal Velocity 3.3 cm/s Mitral E to LV E' Septal Ratio 15.5 TR Peak Velocity 107.0 cm/s TR Peak Gradient 4.6 mmHg PV Peak Velocity 41.4 cm/s PV Peak Gradient 0.7 mmHg FINDINGS LEFT VENTRICLE Normal left ventricular size. Mild to moderate concentric left ventricular hypertrophy. The left ventricular systolic function is mildly reduced with an estimated ejection fraction in the range of 45- 50%. No regional wall motion abnormalities are present. Doppler parameters are consistent with impaired left ventricular relaxtion (grade 1 diastolic dysfun ction). RIGHT VENTRICLE The right ventriclar size is upper limits of normal. LEFT ATRIUM The left atrial size is mildly dilated. RIGHT ATRIUM The right atrial size is mildly dilated. ATRIAL SEPTUM The interatrial septum not well visualized. AORTA Mildly dilated proximal ascending aorta. MITRAL VALVE Structurally normal mitral valve. Trace mitral valve regurgitation. AORTIC VALVE Trileaflet aortic valve. Aortic valve sclerosis is present. No aortic valve regurgitation. TRICUSPID VALVE Structurally normal tricuspid valve. There is trace tricuspid valve regurgitation. Pulmonary arterial systolic pressure could not be estimated due to an insufficient tricuspid valve regurgitation doppler jet for measurement. PULMONARY VALVE No pulmonary valve regurgitation or stenosis. No pulmonary valve regurgitation. VESSELS The inferior vena cava was not well visualized. Eliezer Chery MD (Electronically Signed) Final Date:11 December 2016 10:36
--- NOTE | 2016-12-11 12:13 | HHI.PR ---
Subjective Remarks The patient had a headache earlier but went away with Tylenol. Otherwise no acute complaints. Per nursing she did report chest pain earlier and an EKG was done while cardiology was evaluating the patient. Objective Vitals Vital Signs Date Time Temp Pulse Resp B/P Pulse Ox O2 Delivery O2 Flow Rate FiO2 12/11/16 11:00 91 16 160/79 93 12/11/16 10:00 90 24 162/90 95 12/11/16 10:00 101 12/11/16 09:00 90 24 162/90 95 12/11/16 08:00 99.2 82 21 181/82 92 12/11/16 08:00 68 12/11/16 07:00 82 28 170/97 94 12/11/16 06:00 71 12/11/16 04:00 98.5 85 18 148/70 93 12/11/16 04:00 85 12/11/16 02:00 78 12/11/16 00:00 80 12/11/16 00:00 98.2 80 17 155/73 94 12/10/16 22:00 77 12/10/16 20:00 70 12/10/16 20:00 98.4 70 13 190/88 93 12/10/16 16:00 65 19 169/91 95 I/O 12/10/16 12/10/16 12/10/16 12/11/16 12/11/16 12/11/16 07:00 15:00 23:00 07:00 15:00 23:00 Intake Total 480 ml 417 ml 60 ml Output Total 600 ml Balance -600 ml 480 ml 417 ml 60 ml Intake Oral 480 ml 120 ml 60 ml IV Total 297 ml Output Urine Total 600 ml # Voids 2 3 2 3 # Bowel Movements 0 0 0 Result Diagram: 12/11/1642612/11/[address] Angiography 12/09/16311 Signed Impressions: Service Date/Time: November 03:23 - CONCLUSION: 1. No pulmonary embolus. 2. Left anterior descending coronary artery calcification. 3. Mild atelectasis and chronic interstitial changes of the visualized lung bases. 4. Eventration of the right hemidiaphragm. 5. Hepatic cysts. Jarrett Jimenez MD Chest X-Ray 12/09/167 Signed Impressions: Service Date/Time: November 02:24 - CONCLUSION: 1. Trace bibasilar atelectasis. No pneumonic infiltrate demonstrated. 2. Borderline cardiomegaly. 3. Tortuous thoracic aorta. 4. Age-indeterminate right hemidiaphragm elevation. Jarrett Jimenez MD Head CT 12/09/16 0000 Signed Impressions: Service Date/Time: November 11:38 - CONCLUSION: 1. No acute intracranial abnormality identified. Ty Castro MD Objective Remarks GENERAL: This is a well-nourished, well-developed patient, in no apparent distress. SKIN: No rashes, ecchymoses or lesions. Cool and dry. HEAD: Atraumatic. Normocephalic. No temporal or scalp tenderness. EYES: Extraocular motions intact. No scleral icterus. No injection or drainage. CARDIOVASCULAR: Regular rate and rhythm without murmurs, gallops, or rubs. RESPIRATORY: Clear to auscultation. Breath sounds equal bilaterally. No wheezes , rales, or rhonchi. GASTROINTESTINAL: Abdomen soft, non-tender, nondistended. No guarding. MUSCULOSKELETAL: Extremities without clubbing, cyanosis, or edema. No joint tenderness, effusion, or edema noted. NEUROLOGICAL: Awake and alert. No focal deficits noted. Motor and sensory grossly within normal limits. Five out of 5 muscle strength in all muscle groups. Normal speech. PSYCH: Mood and affect appropriate. Medications and IVs Current Medications Medications (Trade) Dose Ordered Sig/Saul Route Start Time Stop Time Status Last Admin (NS Flush) 2 ml UNSCH PRN IV FLUSH 12/09/16 04:45 12/09/16 07:04 (NS Flush) 2 ml BID IV FLUSH 12/09/16 09:00 12/11/16 08:03 (Narcan Inj) 0.4 mg UNSCH PRN IV 12/09/16 04:45 (Lopressor Inj) 5 mg Q6H PRN IV PUSH 12/09/16 04:45 12/10/16 13:21 (Apresoline Inj) 10 mg Q30M PRN IV PUSH 12/09/16 05:30 12/11/16 09:05 Miscellaneous Information Patient in critical care unit? Ass... Q361D .XX 12/09/16 14:30 12/09/16 14:20 (Chlorhexidine 2% Cloth) 3 pack DAILY@04 TOPICAL 12/10/16 04:00 12/14/16 04:01 12/11/16 04:00 (Chlorhexidine 2% Cloth) 3 pack UNSCH PRN TOPICAL 12/09/16 14:30 12/14/16 14:18 (Lovenox Inj) 40 mg Q24H SQ 12/10/16 14:00 12/10/16 17:22 (Pill Splitter) 1 ea UNSCH PRN OTHER 12/10/16 13:30 Lisinopril 40 mg 40 mg DAILY PO 12/11/16 09:00 12/11/16 08:04 (KCl 20 Meq Premix Inj) 100 ml @ 50 mls/hr Q2H IV 12/11/16 09:00 12/11/16 12:59 12/11/16 11:18 (Norvasc) 5 mg DAILY PO 12/11/16 09:45 12/11/16 10:24 (Ecotrin Ec) 81 mg DAILY PO 12/11/16 09:45 12/11/16 10:24 (Tylenol) 650 mg Q4H PRN PO 12/11/16 10:15 12/11/16 10:24 A/P Problem List: (1) Hypertensive urgency ICD Code: I16.0 Status: Acute (2) Elevated troponin ICD Code: R74.8 Status: Acute Assessment and Plan HTN urgency Blood pressure improved on lisinopril, however, still becomes elevated at times. Cardiology consult appreciated. - Will continue metoprolol IV and hydralazine IV as needed. - continue lisinopril 40 mg daily. D/c HCTZ s/t hypokalemia. Increase amlodipine to 10 mg daily. - educated pt on lifestyle modifications. Elevated troponin Likely related to hypertensive urgency. Currently at 0.19. Echo with EF 45-50% and grade 1 diastolic dysfunction. Repeat EKG without acute ischemic changes. LDL 141. - continuous cardiac monitoring specialist. - blood pressure control. - follow up with cardiology. Leukocytosis Possibly a stress reaction. Decreasing. Afebrile. CXR and CT chest negative for infection. Improving. - check a UA. - continue to trend. Hypokalemia Unsure of etiology. Exacerbated by HCTZ. - replete with IV KCl and monitor. - d/c HCTZ. D-dimer elevated at 1.67 CT angiogram negative for pulmonary embolism. - no further work-up. DVT prophylaxis with Lovenox Discharge Planning Awaiting further cardiac evaluation and blood pressure improvement Javier Gracia DO Dec 11, 2016 12:13
--- NOTE | 2016-12-11 12:14 | EKG ---
Date Performed: 12/10/2016 Time Performed: 14:24:03 PTAGE: 66 years EKG: Sinus rhythm MARKED LEFT AXIS DEVIATION NONSPECIFIC T-WAVE ABNORMALITY Since previous tracing, no significant zak nge noted ABNORMAL ECG PREVIOUS TRACING : 12/09/2016 15.43 DOCTOR: Silvino Perkins Interpretating Date/Time 12/11/2016 12:12:28
[2016-12-11] MEDS: ENOXAPARIN SODIUM 40 MG/0.4 ML SYRINGE SQ SCH (15:08)
[2016-12-11 17:02] LABS: BICARBONATE 25.9 MEQ/L (21.0-32.0); POTASSIUM 3.5 MEQ/L (3.5-5.1)
[2016-12-11] MEDS ORDERED: POTASSIUM CHLORIDE 25 MEQ EFFERVESCENT TAB PO ONE (17:30)
[2016-12-12] VITALS (9 sets, daily range): BP systolic 109–147; BP diastolic 57–85; PULSE 67–100; RESP 12–21; TEMP 98–98.6; O2SAT 90–95
[2016-12-12] MEDS: CHLORHEXIDINE GLUCONATE 2 % 1 PACK (2 CLOTHS)(taper/protocol) TOPICAL SCH (04:00)
[2016-12-12 05:50] LABS: HEMATOCRIT 40.2 % (35.0-46.0); MEAN CORPUSCULAR HEMOGLOBIN 29.3 PG (27.0-34.0); MEAN CORPUSCULAR HGB CONC 33.3 % (32.0-36.0); PLATELET COUNT 263 TH/MM3 (150-450); RED BLOOD COUNT 4.56 MIL/MM3 (4.00-5.30); RED CELL DISTRIBUTION WIDTH 14.3 % (11.6-17.2); REVIEW FLAG FINAL; WHITE BLOOD COUNT 10.4 TH/MM3 (4.0-11.0)
[2016-12-12 06:17] LABS: BICARBONATE 26.9 MEQ/L (21.0-32.0); MAGNESIUM 2.1 MG/DL (1.5-2.5); POTASSIUM 3.3 MEQ/L (3.5-5.1)
[2016-12-12] MEDS: ASPIRIN EC 81 MG TABEC PO SCH (08:45)
[2016-12-12] MEDS: SODIUM CHLORIDE 0.9% FLUSH 10 ML FLUSH IV FLUSH SCH (08:45)
[2016-12-12] MEDS: LISINOPRIL 20 MG TAB PO SCH (08:45)
[2016-12-12] MEDS ORDERED: POTASSIUM CHLORIDE 20 MEQ CONTROLLED RELEASE TAB PO SCH (09:00)
[2016-12-12] MEDS ORDERED: amLODIPine BESYLATE 5 MG TAB PO SCH (09:00)
--- NOTE | 2016-12-12 10:04 | PD.CARD.PN ---
Subjective Subjective Remarks no complaints no overnight events Objective Medications Current Medications Medications (Trade) Dose Ordered Sig/Saul Route Start Time Stop Time Status Last Admin (NS Flush) 2 ml UNSCH PRN IV FLUSH 12/09/16 04:45 12/09/16 07:04 (NS Flush) 2 ml BID IV FLUSH 12/09/16 09:00 12/12/16 08:45 (Narcan Inj) 0.4 mg UNSCH PRN IV 12/09/16 04:45 (Lopressor Inj) 5 mg Q6H PRN IV PUSH 12/09/16 04:45 12/10/16 13:21 (Apresoline Inj) 10 mg Q30M PRN IV PUSH 12/09/16 05:30 12/11/16 09:05 Miscellaneous Information Patient in critical care unit? Ass... Q361D .XX 12/09/16 14:30 12/09/16 14:20 (Chlorhexidine 2% Cloth) 3 pack DAILY@04 TOPICAL 12/10/16 04:00 12/14/16 04:01 12/12/16 04:00 (Chlorhexidine 2% Cloth) 3 pack UNSCH PRN TOPICAL 12/09/16 14:30 12/14/16 14:18 (Lovenox Inj) 40 mg Q24H SQ 12/10/16 14:00 12/11/16 15:08 (Pill Splitter) 1 ea UNSCH PRN OTHER 12/10/16 13:30 (Prinivil) 40 mg DAILY PO 12/11/16 09:00 12/12/16 08:45 (Ecotrin Ec) 81 mg DAILY PO 12/11/16 09:45 12/12/16 08:45 (Tylenol) 650 mg Q4H PRN PO 12/11/16 10:15 12/11/16 10:24 (Norvasc) 10 mg DAILY PO 12/12/16 09:00 12/12/16 08:45 (KCl) 40 meq Q4H PO 12/12/16 09:00 12/12/16 13:01 12/12/16 09:08 Vital Signs / I&O Vital Signs Date Time Temp Pulse Resp B/P Pulse Ox O2 Delivery O2 Flow Rate FiO2 12/12/16 06:00 79 12/12/16 04:00 98.2 72 16 109/57 92 6/25/17 04:00 72 12/12/16 02:00 78 12/12/16 00:00 85 12/12/16 00:00 98.6 88 18 147/82 90 12/11/16 22:00 85 12/11/16 20:00 89 12/11/16 20:00 98.4 88 20 159/85 93 12/11/16 18:00 79 17 136/66 93 12/11/16 18:00 79 12/11/16 17:00 80 16 177/90 92 12/11/16 16:00 99.0 81 19 133/69 92 12/11/16 16:00 81 12/11/16 15:00 83 15 139/74 92 12/11/16 14:00 77 15 149/74 91 12/11/16 14:00 77 12/11/16 13:00 93 20 151/78 93 12/11/16 12:00 98.6 80 0 137/71 90 12/11/16 12:00 80 12/11/16 11:00 91 16 160/79 93 I/O 12/11/16 12/11/16 12/11/16 12/12/16 12/12/16 12/12/16 07:00 15:00 23:00 07:00 15:00 23:00 Intake Total 60 ml 844 ml 240 ml 120 ml Output Total 300 ml 400 ml Balance 60 ml 544 ml -160 ml 120 ml Intake Oral 60 ml 444 ml 240 ml 120 ml IV Total 400 ml 0 ml Output Urine Total 300 ml 400 ml Stool Total 0 ml # Voids 3 2 3 # Bowel Movements 0 0 0 0 Physical Exam GENERAL: Well-nourished, well-developed patient. SKIN: Warm and dry. HEAD: Normocephalic. EYES: No scleral icterus. No injection or drainage. NECK: Supple, trachea midline. No JVD or lymphadenopathy. CARDIOVASCULAR: Regular rate and rhythm without murmurs, gallops, or rubs. RESPIRATORY: Breath sounds equal bilaterally. No accessory muscle use. GASTROINTESTINAL: Abdomen soft, non-tender, nondistended. EXTREMITIES: No cyanosis, or edema. NEUROLOGICAL: Awake, alert, and oriented x 3. Non-focal. Laboratory Laboratory Tests Test 12/11/16 12/12/16 16:01 05:32 Sodium Level 137 MEQ/L 138 MEQ/L Potassium Level 3.5 MEQ/L 3.3 MEQ/L Chloride Level 103 MEQ/L 103 MEQ/L Carbon Dioxide Level 25.9 MEQ/L 26.9 MEQ/L Anion Gap 8 MEQ/L 8 MEQ/L Blood Urea Nitrogen 12 MG/DL 16 MG/DL Creatinine 0.79 MG/DL 0.91 MG/DL Estimat Glomerular Filtration 88 ML/MIN 75 ML/MIN Rate Random Glucose 83 MG/DL 90 MG/DL Calcium Level 8.6 MG/DL 8.6 MG/DL White Blood Count 10.4 TH/MM3 Red Blood Count 4.56 MIL/MM3 Hemoglobin 13.4 GM/DL Hematocrit 40.2 % Mean Corpuscular Volume 88.0 FL Mean Corpuscular Hemoglobin 29.3 PG Mean Corpuscular Hemoglobin 33.3 % Concent Red Cell Distribution Width 14.3 % Platelet Count 263 TH/MM3 Mean Platelet Volume 8.1 FL Magnesium Level 2.1 MG/DL Assessment and Plan Problem List: (1) Hypertensive urgency Assessment and Plan: Cont current medical management Stable to d/c home from CV standpoint Start Statin F/U with cardiology upon discharge (2) Elevated troponin Eliezer Chery MD Dec 12, 2016 10:04
[2016-12-12] MEDS ORDERED: ATORVASTATIN 10 MG TAB PO SCH (11:00)
[2016-12-12] MEDS ORDERED: ASPI-99 PO (11:06)
[2016-12-12] MEDS ORDERED: LISI-515 PO (11:06)
[2016-12-12] MEDS ORDERED: AMLO5 PO (11:06)
[2016-12-12] MEDS ORDERED: LIPI10TA PO (11:06)
[2016-12-12] MEDS ORDERED: POTA-163 PO (11:06)
--- NOTE | 2016-12-12 11:08 | HHI.DCPOC ---
Discharge Care Plan Diagnosis: (1) Elevated troponin (2) Hypertensive urgency Goals to Promote Your Health * To prevent worsening of your condition and complications * To maintain your health at the optimal level Directions to Meet Your Goals Take your medications as prescribed Follow your dietary instruction Follow activity as directed Keep your appointments as scheduled Take your immunizations and boosters as scheduled If your symptoms worsen call your PCP, if no PCP go to Urgent Care Center or Emergency Room Smoking is Dangerous to Your Health. Avoid second hand smoke Call the 24-hour hour crisis hotline for domestic abuse at Javier Gracia DO Dec 12, 2016 11:07
--- NOTE | 2016-12-12 12:18 | EKG ---
Date Performed: 12/11/2016 Time Performed: 09:52:04 PTAGE: 66 years EKG: Sinus rhythm Left axis deviation QRS changes V3/V4 may be due to LVH but cannot rule out anterior infarct Since p revious tracing, no significant change noted Abnormal ECG PREVIOUS TRACING : 12/10/2016 14.24.03 DOCTOR: Silvino Perkins Interpretating Date/Time 12/12/2016 12:17:17
--- NOTE | 2016-12-12 13:43 | HHI.DS ---
Discharge Summary Admission Date Dec 09, 2016 at 04:31 Discharge Date: Dec 12, 2016 Admitting Diagnosis hypertensive urgency/elevated troponin (1) Hypertensive urgency ICD Code: I16.0 Diagnosis: Principal (2) Elevated troponin ICD Code: R74.8 Diagnosis: Principal Procedures None Brief History - From Admission Written by Sonia Baez, acting as scribe for Dr. Cobian on 12/09/16 at 04: 58. This is a 66 year old female patient with a past medical history which includes hypertension. Patient reports she currently does not have a primary care provider and has not on any medications on a daily basis. Patient reports that when she woke up around 0100 and she, "just didn't feel right." Patient reports that, "maybe my breathing was labored." "I guess my intuition had brought me here." Patient remains a throughout the interview process and offers no specific complaints. Denies headache, changes in vision, feeling light headed, dizziness, fevers, cough, N/V, chest pain, black stool, red stool, dysuria, frequent urination or diaphoresis. Blood pressure checked at bilateral upper extremities there is no significant difference noted. BP on arrival 212/124 heart rate 113, EKG reveals sinus rhythm first degree AV block rate 93 bpm with LVH CBC/BMP: 12/12/16 0532 12/12/16 0532 Significant Findings Laboratory Tests Test 12/09/16 12/10/16 12/10/16 12/10/16 17:11 05:22 10:53 17:29 Total Creatine Kinase 287 U/L (26-192) Troponin I 0.15 NG/ML 0.19 NG/ML 0.18 NG/ML (0.02-0.05) (0.02-0.05) (0.02-0.05) White Blood Count 13.3 TH/MM3 (4.0-11.0) Lymphocytes (%) (Auto) 48.4 % (9.0-44.0) Lymphocytes # (Auto) 6.4 TH/MM3 (1.0-4.8) Lymphocytes % 49 % (9-44) Keratocytes OCC (NORMAL) Potassium Level 3.1 MEQ/L (3.5-5.1) Chloride Level 108 MEQ/L (98-107) Estimat Glomerular Filtration 81 ML/MIN (>89) Rate Calcium Level 8.2 MG/DL (8.5-10.1) Test 12/11/16 12/11/16 12/12/16 04:27 16:01 05:32 White Blood Count 12.1 TH/MM3 (4.0-11.0) Potassium Level 3.1 MEQ/L 3.3 MEQ/L (3.5-5.1) (3.5-5.1) Estimat Glomerular Filtration 87 ML/MIN (>89) 88 ML/MIN (>89) 75 ML/MIN (>89) Rate Cholesterol Level 216 MG/DL (120-200) LDL Cholesterol 141 MG/DL (0-99) Imaging Last Impressions CT Angiography 12/09/16 0312 Signed Impressions: Service Date/Time: November 03:23 - CONCLUSION: 1. No pulmonary embolus. 2. Left anterior descending coronary artery calcification. 3. Mild atelectasis and chronic interstitial changes of the visualized lung bases. 4. Eventration of the right hemidiaphragm. 5. Hepatic cysts. Jarrett Jimenez MD Chest X-Ray 12/09/16 0207 Signed Impressions: Service Date/Time: November 02:24 - CONCLUSION: 1. Trace bibasilar atelectasis. No pneumonic infiltrate demonstrated. 2. Borderline cardiomegaly. 3. Tortuous thoracic aorta. 4. Age-indeterminate right hemidiaphragm elevation. Jarrett Jimenez MD Head CT 12/09/16 0000 Signed Impressions: Service Date/Time: November 11:38 - CONCLUSION: 1. No acute intracranial abnormality identified. Ty Castro MD PE at Discharge GENERAL: This is a well-nourished, well-developed patient, in no apparent distress. SKIN: No rashes, ecchymoses or lesions. Cool and dry. HEAD: Atraumatic. Normocephalic. No temporal or scalp tenderness. EYES: Extraocular motions intact. No scleral icterus. No injection or drainage. CARDIOVASCULAR: Regular rate and rhythm without murmurs, gallops, or rubs. RESPIRATORY: Clear to auscultation. Breath sounds equal bilaterally. No wheezes , rales, or rhonchi. GASTROINTESTINAL: Abdomen soft, non-tender, nondistended. No guarding. MUSCULOSKELETAL: Extremities without clubbing, cyanosis, or edema. No joint tenderness, effusion, or edema noted. NEUROLOGICAL: Awake and alert. No focal deficits noted. Motor and sensory grossly within normal limits. Five out of 5 muscle strength in all muscle groups. Normal speech. PSYCH: Mood and affect appropriate. Pt update on day of discharge The patient was feeling much better. She wanted to go home. She requested some nutrition information to help avoid high blood pressure. She said she no longer had a headache. Discussed with nursing. Hospital Course HTN urgency The pt received IV hydralazine and IV Lopressor as needed. She was started on lisinopril. Cardiology was consulted. Her lisinopril was increased to 40 mg daily. HCTZ was started but d/c s/t hypokalemia. Amlodipine was started. The pt will be discharged on lisinopril 40 mg and amlodipine 5 mg daily. She will follow up with her PCP and with cardiology. She was educated on lifestyle modifications. Elevated troponin Troponin peaked at 0.19. Echo with EF 45-50% and grade 1 diastolic dysfunction. Repeat EKG without acute ischemic changes. LDL 141. D-Dimer was elevated. CXR and CT chest negative for an acute process. She was started on a statin and ASA. Cardiology was consulted. She was monitored on continuous cardiac telemetry. She received blood pressure control. She will follow up with cardiology as an outpt. Hypokalemia Exacerbated by HCTZ, which was d/c. She says it is a chronic problem. She received repletion and will be d/c on KCl supplementation. Pt Condition on Discharge: Stable Discharge Disposition: Discharge Home Discharge Time: > 30 minutes Discharge Instructions DIET: Follow Instructions for: Heart Healthy Diet Activities you can perform: Weight Bearing as Alf Follow up Referrals: Cardiology - [address] Malone PCP Follow-up - 1 Week New Medications: Potassium Chloride ER (Potassium Chloride ER) 20 Meq Tab 20 MEQ PO DAILY Electrolyte Replacement #30 Ref 0 TAB Amlodipine (Norvasc) 5 Mg Tab 5 MG PO DAILY Blood Pressure Management #[address] (Adult Aspirin EC Low Strength) 81 Mg Tabec 81 MG PO DAILY Heart #30 TAB Atorvastatin (Lipitor) 10 Mg Tab 10 MG PO DAILY Cholesterol Management #30 TAB Lisinopril (Lisinopril) 20 Mg Tab 40 MG PO DAILY Blood Pressure Management #60 TAB Javier Gracia DO Dec 12, 2016 13:43
== END 2016-12-12 12:20 | disposition home or self-care (01) | DRG 305 ==
LOC: NEPE 01:36 → NEDA 04:31 → HIMN 07:10
PROVIDERS: ADMIT Hospitalist; ATTEND Hospitalist
DX: I16.0 Hypertensive urgency (principal); I24.8 Other forms of acute ischemic heart disease; I44.0 Atrioventricular block, first degree; I10 Essential (primary) hypertension; E87.6 Hypokalemia; Z79.899 Other long term (current) drug therapy; D72.829 Elevated white blood cell count, unspecified
CPT/HCPCS: 70450; 71010; 71275; 80048; 80053; 80061; 82550; 82552; 83735; 83880; 84484; 85007; 85027; 85379; 85610; 85730; 87641; 93005; 93306; 96374; J0360; J1650; J3480; Q9967

== ENCOUNTER 2017-01-15 04:15 | Emergency (ER) | payer OTHER, MEDICAID ==
[~2017-01-15] VITALS: Ht 160 cm; Wt 90.5 kg
[~2017-01-15 04:15] MED LIST: AMLO5 PO; ASPI-99 PO; LIPI10TA PO; LISI-515 PO; POTA-163 PO
[2017-01-15 04:17] VITALS: BP 182/90; PULSE 79; RESP 16; TEMP 98.5; O2SAT 96
[2017-01-15] MEDS ORDERED: LOSA100T PO (04:32)
[2017-01-15 05:28] VITALS: BP 172/84
[2017-01-15 05:29] VITALS: BP 171/86
--- NOTE | 2017-01-15 06:22 | PD ---
HPI Chief Complaint: Hypertension Time Seen by Provider: 06:18 Travel History International Travel<30 days: No Contact w/Intl Traveler<30days: No Traveled to known affect area: No History of Present Illness HPI 66-year-old female presents to the emergency department by private transportation for complaint of elevated blood pressure. Patient has history of hypertension and is prescribed multiple antihypertensive medications. Patient more recently has required adjustment of her medications and therefore routinely checks her blood pressure to monitor her medication effect. Patient states last evening her blood sugar pressures are running in the 160 systolic range and this morning upon awakening noted her blood pressure to be 180 mmHg systolic. Patient decided come to the emergency room for evaluation. Patient states she has had no discomfort or symptoms associated with blood pressure elevation. Patient denies any pain pain is 0/10 in intensity. Patient denies headache dizziness visual disturbance double vision loss of vision blurred vision facial weakness difficulty swallowing facial droop change in speech or confusion neck pain chest pain back pain jaw pain extremity pain palpitations shortness of breath orthopnea or dyspnea on exertion sweats nausea vomiting abdominal pain flank pain upper or lower extremity numbness tingling or weakness and denies ataxia of gait. Patient states she feels well but is concerned about her blood pressure elevation. Patient did require admission in November for hypertensive urgency. Patient was recently had lisinopril discontinued because it causes coughing and made her feel funny. Patient is taking no LEIDA inhibitor's. PFSH Past Medical History Narrative Medical Hypertension asthma CAD; hysterectomy; no tobacco; nursing notes reviewed Hx Anticoagulant Therapy: Yes (Aspirin) Arthritis: No Asthma: Yes Autoimmune Disease: No Anxiety: No Depression: No Heart Rhythm Problems: No Cancer: No High Cholesterol: No Chemotherapy: No Chest Pain: No Congestive Heart Failure: No COPD: No Cerebrovascular Accident: No Coronary Artery Disease: Yes Diabetes: No Endocrine: No Genitourinary: No Hiatal Hernia: No Hypertension: Yes Immune Disorder: No Kidney Stones: No Musculoskeletal: No Neurologic: No Psychiatric: No Reproductive: Yes (and is not aware) Respiratory: No Radiation Therapy: No Renal Failure: No Seizures: No Sickle Cell Disease: No Sleep Apnea: No Thyroid Disease: No Ulcer: No Tetanus Vaccination: Unknown Influenza Vaccination: No ?: Not Past Surgical History Abdominal Surgery: No AICD: No Arteriovenous Shunt: No Cardiac Surgery: No Ear Surgery: No Endocrine Surgery: No Eye Surgery: No Genitourinary Surgery: No Gynecologic Surgery: Yes Hysterectomy: Yes Insulin Pump: No Joint Replacement: No Oral Surgery: No Pacemaker: No Thoracic Surgery: No Social History Alcohol Use: No Tobacco Use: No Substance Use: No Allergies-Medications (Allergen,Severity, Reaction): Coded Allergies: No Known Allergies (Unverified , 01/15/17) Reported Meds & Prescriptions Reported Meds & Active Scripts Active Norvasc (Amlodipine Besylate) 5 Mg Tab 5 Mg PO DAILY Potassium Chloride ER (Potassium Chloride) 20 Meq Tab 20 Meq PO DAILY Lipitor (Atorvastatin Calcium) 10 Mg Tab 10 Mg PO DAILY Adult Aspirin EC Low Strength (Aspirin) 81 Mg Tabec 81 Mg PO DAILY Reported Losartan (Losartan Potassium) 100 Mg Tab 100 Mg PO DAILY Review of Systems Except as stated in HPI: all other systems reviewed are Neg Physical Exam Narrative GENERAL: Well-developed well-nourished female in no acute distress no respiratory distress SKIN: Warm and dry. HEAD: Normocephalic. EYES: No scleral icterus. No injection or drainage. NECK: Supple, trachea midline. No JVD or lymphadenopathy. CARDIOVASCULAR: Regular rate and rhythm without murmurs, gallops, or rubs. RESPIRATORY: Breath sounds equal bilaterally. No accessory muscle use. GASTROINTESTINAL: Abdomen soft, non-tender, nondistended. MUSCULOSKELETAL: No cyanosis, or edema. Radial dorsalis pedis pulses 2+ to palpation. BACK: Nontender without obvious deformity. No CVA tenderness. Data Data Last Documented VS Vital Signs Date Time Temp Pulse Resp B/P Pulse Ox O2 Delivery O2 Flow Rate FiO2 01/15/17 06:32 68 16 162/82 97 Room Air 01/15/17 04:17 98.5 Orders Clonidine (Catapres) (01/15/17 06:30) [facility] Medical Decision Making Medical Screen Exam Complete: Yes Emergency Medical Condition: Yes Medical Record Reviewed: Yes Differential Diagnosis Hypertension, accelerated hypertension, subtherapeutic antihypertensive therapy , anxiety Narrative Course Well-developed well-nourished and form 66-year-old female with history of hypertension presents due to asymptomatic elevation of blood pressure Patient with repeat blood pressure remains elevated therefore clonidine 0.1 mg administered by mouth @0 700 care signed over to oncoming physician Dr. Lugo Diagnosis Primary Impression: Hypertension Shama Medrano MD Jan 15, 2017 06:22
[2017-01-15] MEDS ORDERED: cloNIDine HCL 0.1 MG TAB PO ONE (06:30)
[2017-01-15 06:32] VITALS: BP 162/82; PULSE 68; RESP 16; O2SAT 97
[2017-01-15] MEDS ORDERED: CLON0.1T PO (07:14)
[2017-01-15 07:15] VITALS: BP 123/69; PULSE 69; RESP 18; O2SAT 99
--- NOTE | 2017-01-15 07:18 | PD ---
Physical Exam Date Seen by Provider: Jan 15, 2017 Narrative GENERAL: SKIN: Warm and dry. HEAD: Atraumatic. Normocephalic. EYES: Pupils equal and round. No scleral icterus. No injection or drainage. ENT: No nasal bleeding or discharge. Mucous membranes pink and moist. NECK: Trachea midline. No JVD. CARDIOVASCULAR: Regular rate and rhythm. RESPIRATORY: No accessory muscle use. Clear to auscultation. Breath sounds equal bilaterally. GASTROINTESTINAL: Abdomen soft, non-tender, nondistended. Hepatic and splenic margins not palpable. MUSCULOSKELETAL: Extremities without clubbing, cyanosis, or edema. No obvious deformities. NEUROLOGICAL: Awake and alert. No obvious cranial nerve deficits. Motor grossly within normal limits. Five out of 5 muscle strength in the arms and legs. Normal speech. PSYCHIATRIC: Appropriate mood and affect; insight and judgment normal. Data Data Last Documented VS Vital Signs Date Time Temp Pulse Resp B/P Pulse Ox O2 Delivery O2 Flow Rate FiO2 01/15/17 06:32 68 16 162/82 97 Room Air 01/15/17 04:17 98.5 Orders Clonidine (Catapres) (01/15/17 06:30) MDM Medical Record Reviewed: Yes Supervised Visit with [facility]: No Narrative Course received pt from dr klein, to follow on patients bp....at 0710 patient continues asymptomatic, and noted to have a sbp of 162 which is greatly decreased ffrom 180's....and now 129/83. will d/c home Diagnosis Primary Impression: Hypertension Qualified Code: I10 - Essential hypertension Patient Instructions: 2 Gram Sodium Diet (GEN), General Instructions, Hypertension (DC) Scripts Clonidine 0.1 Mg Tab0.1 Mg PO BID #6 TAB Ref 0 Prov:Bharath Lugo MD 01/15/17 Disposition: 01 DISCHARGE HOME Condition: Stable Bharath Lugo MD Jan 15, 2017 07:18
== END 2017-01-15 07:38 | disposition home or self-care (01) ==
LOC: NEPC 04:15
DX: I10 Essential (primary) hypertension (principal); J45.909 Unspecified asthma, uncomplicated; I25.10 Atherosclerotic heart disease of native coronary artery without angina pectoris; Z79.899 Other long term (current) drug therapy
CPT/HCPCS: 99283

== ENCOUNTER 2017-08-01 08:05 | Emergency (ER) | payer OTHER ==
[~2017-08-01 08:05] MED LIST changes: -ASPI-99 PO; +ASPI1TAB56 PO; +CLON0.1T PO; -LISI-515 PO; +LOSA100T PO
[2017-08-01 08:08] VITALS: BP 152/86; PULSE 83; RESP 14; TEMP 98.1; O2SAT 100
== END 2017-08-01 08:09 | disposition left against medical advice (07) ==
LOC: NED 08:05
DX: Z53.21 Procedure and treatment not carried out due to patient leaving prior to being seen by health care provider (principal)
CPT/HCPCS: 99281

== ENCOUNTER 2018-06-07 04:34 | Observation (INO) ==
--- NOTE | 2018-06-07 06:19 | XR ---
EXAM DATE: 06/07/2018 6:15 AM EST AGE/SEX: 67 years / Female INDICATIONS: Chest pain. CLINICAL DATA: This is the patient's initial encounter. Patient reports that signs and symptoms have been present for 1 day and indicates a pain score of 2/10. MEDICAL/SURGICAL HISTORY: Hypertension. None. [place] [facility] [place]. . FINDINGS: A single AP view of the chest demonstrates elevation right hemidiaphragm. Cardiomegaly. The cardiome diastinal contours are unremarkable. Osseous structures are intact. CONCLUSION: 1. Elevation right hemidiaphragm, stable. 2. Cardiomegaly. Electronically signed by: Andrzej Simons MD Board Certified Radiologist 06/07/2018 6:17 AM EST
--- NOTE | 2018-06-07 06:22 | ED ---
HPI General Chief complaint: Medical Clearance Stated complaint: Poss elevated BP Time Seen by Provider: 06/07/18 05:24 History of Present Illness HPI narrative: Patient is a 67-year-old female presents emergency department for chief complaint of elevated blood pressure. Patient states that she can tell when her blood pressure is elevated because she gets a discomfort in her chest as well as some heart palpitations. She states this happened to her intermittently. States she recently had a change in insurance and therefore is been stretching out her blood pressure medication as much as possible. She denies any chest pain denies any shortness of breath abdominal pain nausea vomiting decreased urination. States symptoms started this morning, have been intermittent in the past, associated signs symptoms and context as above. Related Data Previous Rx's Medication Instructions Recorded aspirin 324 mg PO DAILY 30 Days #120 tab 06/07/18 losartan 25 mg PO DAILY 30 Days #30 tab 06/07/18 Allergies Allergy/AdvReac Type Severity Reaction Status Date / Time No Known Allergies Allergy Verified 06/07/18 04:37 Review of Systems ROS: all other systems reviewed are negative [facility] Medical History Medical History Hypertension (Acute) Social History Social History Substance History: No History of Abuse Second Hand Smoke Exposure: No Smoking Status: Never smoker How Often Do You Have a Drink Containing Alcohol: Never Recent Travel in [facility] within the Last 8 Weeks: No Recent Out of Country Travel within the Last 8 Weeks: No Immunization History Tetanus Immunization: >5 Years Exam Narrative Exam Narrative: GENERAL: Well-developed well-nourished, no obvious distress per SKIN: Focused skin assessment warm/dry. HEAD: Atraumatic. Normocephalic. EYES: Pupils equal and round. No scleral icterus. No injection or drainage. ENT: No nasal bleeding or discharge. Mucous membranes pink and moist. NECK: Trachea midline. No JVD. CARDIOVASCULAR: Regular rate and rhythm. No murmur appreciated. No murmurs gallops or rubs, 2+ bilateral equal pulses in all 4 extremities. RESPIRATORY: No accessory muscle use. Clear to auscultation. Breath sounds equal bilaterally. GASTROINTESTINAL: Abdomen soft, non-tender, nondistended. Hepatic and splenic margins not palpable. MUSCULOSKELETAL: No obvious deformities. No clubbing. No cyanosis. No edema. NEUROLOGICAL: Awake and alert. No obvious cranial nerve deficits. Motor grossly within normal limits. Normal speech. PSYCHIATRIC: Appropriate mood and affect; insight and judgment normal. Course Initial Documented Vital Signs Temperature 97.8 F 06/07/18 04:37 Pulse Rate 91 H 06/07/18 04:37 Respiratory Rate 16 06/07/18 04:37 Blood Pressure 195/99 H 06/07/18 04:37 Pulse Oximetry 96 06/07/18 04:37 Last Documented Vital Signs Temperature 97.8 F 06/07/18 04:37 Pulse Rate 69 06/07/18 06:49 Respiratory Rate 18 06/07/18 06:49 Blood Pressure 159/96 H 06/07/18 06:49 Pulse Oximetry 96 06/07/18 06:49 Medical Decision Making MDM Narrative Medical decision making narrative: Patient room to the emergency department, mild chest discomfort led her to take her blood pressure this morning which is elevated and then she came into the emergency department her blood pressure is improving without intervention. Given the chest discomfort and EKG basic labs including troponin been ordered. Initially for signout the patient's chemistry including troponin returned just prior to shift change. Troponin is elevated 0.19. Reviewed the previous records and the patient's November 2016 visit for hypertensive urgency led to a cardiology consult for elevated troponins at that time. It is recommended that she have an outpatient stress test and she was deemed stable for discharge after blood pressure was under control. The patient states that she thinks she had a stress test but states she never received the results from it. Her blood pressure has resolved without intervention here, her troponin is elevated suggesting that she may have some coronary artery disease that needs addressing. I discussed with her that the risks of unresolved coronary artery disease and elevated troponins include and permanent disability. Patient verbalized understanding and accepted the risks and expressed her wish to leave AGAINST MEDICAL ADVICE. When asked why she did not have a reason. The patient' s blood pressure medication will be refilled for a month and the patient was recommended to take an aspirin 325 mg daily and follow-up with a oracle sql developer at her earliest convenience. She was urged to return the emergency department anytime she felt like she needed additional evaluation. Medical Screen Exam Complete: Yes Emergency Medical Condition: Yes Lab Data Result diagrams: 06/07/18 06:09 06/07/18 06:09 Lab Results 06/07/18 06/07/18 Range/Units 06:09 06:09 WBC 12.0 H (4.0-11.0) th/mm3 RBC 4.34 (4.00-5.30) mil/mm3 Hgb 13.3 (11.6-15.3) gm/dL Hct 40.2 (35.0-46.0) % MCV 92.7 (80.0-100.0) fL MCH 30.8 (27.0-34.0) pg MCHC 33.2 (32.0-36.0) % RDW 14.3 (11.6-17.2) % Plt Count 279 (150-450) th/mm3 MPV 7.9 (7.0-11.0) fL Prelim Diff (Auto) Slide review pending Neut % (Auto) 22.2 (16.0-70.0) % Lymph % (Auto) 70.2 H (9.0-44.0) % Dougherty % (Auto) 5.2 (0.0-8.0) % Eos % (Auto) 1.8 (0.0-4.0) % Baso % (Auto) 0.6 (0.0-2.0) % Neut # (Auto) 2.7 (1.8-7.7) th/mm3 Lymph # (Auto) 8.4 H (1.0-4.8) th/mm3 Dougherty # (Auto) 0.6 (0.0-0.9) th/mm3 Eos # (Auto) 0.2 (0.0-0.4) th/mm3 Baso # (Auto) 0.1 (0.0-0.2) th/mm3 Differential Comment . Sodium 139 (136-145) meq/L Potassium 3.7 (3.5-5.1) meq/L Chloride 106 (98-107) meq/L Carbon Dioxide 26.3 (21.0-32.0) meq/L Anion Gap 7 (5-15) meq/L BUN 25 H (7-18) mg/dL Creatinine 1.33 H (0.50-1.00) mg/dL Estimated GFR 48 L (>89) mL/min Random Glucose 96 (74-106) mg/dL Calcium 8.3 L (8.5-10.1) mg/dL Total Bilirubin 0.4 (0.2-1.0) mg/dL AST 21 (15-37) U/L ALT 19 (10-53) U/L Alkaline Phosphatase 87 (45-117) U/L Troponin I 0.12 H (0.02-0.05) ng/mL Total Protein 8.4 H (6.4-8.2) g/dL Albumin 3.8 (3.4-5.0) g/dL Imaging Data Radiologist's impression: Chest X-Ray 06/07/18 05:58 CONCLUSION: 1. Elevation right hemidiaphragm, stable. 2. Cardiomegaly. Discharge Plan Discharge Disposition Patient Disposition: Against Medical Advice Discharge Order Discharge Orders: AMA Discharge (Routine); Ordered 06/07/18 Ordered By: Dillan Smalls Discharge Details Diagnosis: Chest discomfort, Elevated troponin I level Physicians Team ED Provider: Dillan Smalls Primary Care Provider: UNKNOWN, Rxs /Orders / Referrals /Forms Prescriptions: Continue losartan 25 mg Tablet 25 mg PO DAILY 30 Days Qty: 30 RF: 0 Changed aspirin 81 mg Tablet,Chewable 324 mg PO DAILY 30 Days Qty: 120 RF: 0 Referrals: [facility] [Outside] - 3 Days Justice Deluca DO [Physician] - 3 Days Discharge Interventions Interventions: Vital Signs Last Done: 06/07/18 05:27 Status ED Status: With Doctor
[2018-06-07 06:24] LABS: Baso # (Auto) 0.1 th/mm3 (0.0-0.2); Baso % (Auto) 0.6 % (0.0-2.0); Eos # (Auto) 0.2 th/mm3 (0.0-0.4); Eos % (Auto) 1.8 % (0.0-4.0); Hematocrit 40.2 % (35.0-46.0); Hemoglobin 13.3 gm/dL (11.6-15.3); Lymph # (Auto) 8.4 th/mm3 (1.0-4.8); Lymph % (Auto) 70.2 % (9.0-44.0); Mean Corpuscular HGB Conc 33.2 % (32.0-36.0); Mean Corpuscular Hemoglobin 30.8 pg (27.0-34.0); Mean Corpuscular Volume 92.7 fL (80.0-100.0); Mean Platelet Volume 7.9 fL (7.0-11.0); Mono # (Auto) 0.6 th/mm3 (0.0-0.9); Mono % (Auto) 5.2 % (0.0-8.0); Neut # (Auto) 2.7 th/mm3 (1.8-7.7); Neut % (Auto) 22.2 % (16.0-70.0); Platelet Count 279 th/mm3 (150-450); Red Blood Count 4.34 mil/mm3 (4.00-5.30); Red Cell Distribution Width 14.3 % (11.6-17.2)
[2018-06-07 06:50] VITALS: RESP 18
[2018-06-07 06:51] LABS: Alanine Aminotransferase 19 U/L (10-53); Albumin 3.8 g/dL (3.4-5.0); Anion Gap 7 meq/L (5-15); Aspartate Aminotransferase 21 U/L (15-37); Blood Urea Nitrogen 25 mg/dL (7-18); Calcium 8.3 mg/dL (8.5-10.1); Carbon Dioxide 26.3 meq/L (21.0-32.0); Chloride 106 meq/L (98-107); Glomerular Filtration Rate 48 mL/min (>89); Glucose,Random 96 mg/dL (74-106); Potassium 3.7 meq/L (3.5-5.1); Sodium 139 meq/L (136-145)
[2018-06-07 06:55] LABS: Alkaline Phosphatase 87 U/L (45-117); Total Protein 8.4 g/dL (6.4-8.2); Troponin I 0.12 ng/mL (0.02-0.05)
[2018-06-07 07:27] LABS: Eosinophils 3 % (0-4); Lymphocytes 72 % (9-44); Monocytes 2 % (0-8)
[2018-06-07 07:28] LABS: Acanthocytes Occ; Howell-Jolly Bodies Present; Platelet Estimate Normal (Normal); Platelet Morphology Normal (Normal)
[2018-06-07] MEDS ORDERED: Bisacodyl 10 MG Supp RECTAL PRN (08:06)
[2018-06-07] MEDS ORDERED: Acetaminophen 325 MG Tablet PO PRN (08:06)
[2018-06-07] MEDS ORDERED: Heparin - SQ 10,000 UNITS/ML Vial SQ SCH (08:15)
[2018-06-07] MEDS ORDERED: Senna/Docusate Sodium 8.6/50 MG Tablet PO SCH (09:00)
[2018-06-07] MEDS ORDERED: amLODIPine 5 MG Tablet PO SCH (09:00)
[2018-06-07 09:11] LABS: Troponin I 0.12 ng/mL (0.02-0.05)
[2018-06-07 09:23] LABS: CKMB Percent 0.8 % (0.0-4.0); Creatine Kinase MB 1.8 ng/mL (0.5-3.6)
[2018-06-07 12:15] VITALS: BP 158/82; PULSE 66; TEMP 97.6; O2SAT 98
--- NOTE | 2018-06-07 12:22 | P.HPIM ---
History of Present Illness Primary Care Physician: UNKNOWN Chief Complaint: Chest pressure History of Present Illness: 67-year-old female with history of hypertension presents with "elevated blood pressure" and tightness in the left chest. Patient states she has not taken her blood pressure pills for 2-3 days because she did not feel like it, and today started to have some left-sided chest pressure and not feeling well, and she knew it was because her blood pressures were elevated, she took 1 of her pills but still felt poorly so came to the emergency room. Patient was found to have a systolic blood pressure over 200. She denies any headache visual changes dizziness shortness of breath radiation of chest tightness into her arm or jaw. Patient's blood pressures were improved in the emergency room and her symptoms have resolved. Patient was noted to have trace elevation of troponins, which she has had in the past. She states she has had a stress test in the past which was negative for angina. PMhx: Hypertension PSXhx: Lumpectomy left breast benign SOChx: Denies tobacco, denies alcohol FAMhx: Mother of throat cancer, father of unknown causes Review of Systems Review of Systems: all other systems reviewed are negative [facility] Medical History Medical History Hypertension (Acute) Social History Social History Substance History: No History of Abuse Second Hand Smoke Exposure: No Smoking Status: Never smoker How Often Do You Have a Drink Containing Alcohol: Never Recent Travel in [facility] within the Last 8 Weeks: No Recent Out of Country Travel within the Last 8 Weeks: No Immunization History Tetanus Immunization: >5 Years Medications and Allergies Allergies Allergy/AdvReac Type Severity Reaction Status Date / Time No Known Allergies Allergy Verified 06/07/18 04:37 Active Medications: Active Medications Acetaminophen (Tylenol) 650 mg PO Q4H PRN PRN Reason: Temp > 100.4 Al Hydroxide/Mg Hydroxide (Milk Of Magngiuliano Liq) 30 ml PO Q12H PRN PRN Reason: Mild Constipation Amlodipine Besylate (Norvasc) 5 mg PO DAILY [facility] Last Admin: 06/07/18 08:36 Dose: 5 mg Aspirin (Ecotrin) 162 mg PO DAILY [facility] Last Admin: 06/07/18 08:36 Dose: 162 mg Bisacodyl (Dulcolax Supp) 10 mg RECTAL DAILY PRN PRN Reason: SEVERE CONSITIPATION Heparin Sodium (Porcine) (Heparin Inj) 5,000 units SQ Q12H [facility] Last Admin: 06/07/18 08:36 Dose: 5,000 units Lactulose (Lactulose Liq) 30 ml PO DAILY PRN PRN Reason: SEVERE CONSITIPATION Ondansetron HCl (Zofran Inj) 4 mg IV.PUSH Q6H PRN PRN Reason: NAUSEA OR VOMITING Senna/Docusate Sodium (Angelica-Colace) 1 tab PO BID [facility] Last Admin: 06/07/18 08:36 Dose: Not Given Sennosides (Senokot) 17.2 mg PO Q12H PRN PRN Reason: Moderate Constipation Sodium Chloride (Ns Flush) 2 ml IV.FLUSH UNSCH PRN PRN Reason: FLUSH AFTER USING IV ACCESS Sodium Chloride (Ns Flush) 2 ml IV.FLUSH BID [facility] Last Admin: 06/07/18 08:37 Dose: 2 ml Sodium Chloride (Ns Flush) 2 ml IV.FLUSH PRN PRN PRN Reason: FLUSH AFTER USING IV ACCESS Physical Exam Vital signs: Last Vital Signs Temp 97.6 F 06/07/18 12:12 Pulse 66 06/07/18 12:12 Resp 18 06/07/18 12:12 BP 158/82 H 06/07/18 12:12 Pulse Ox 98 06/07/18 12:12 Intake & Output 06/05/18 06/06/18 06/07/18 06/08/18 06:59 06:59 06:59 06:59 Weight 90.718 kg GEN well-developed well-nourished 67-year-old -Italian female awake alert oriented to person time and place, pleasant in no acute distress, fluent speech HEENT normocephalic atraumatic, Pupils equal reactive, sclerae anicteric, extraocular motion intact, mucosa is moist. posterior pharynx clear without exudate, no gum lip dental lesions noted NECK supple no JVD trachea midline thyroid smooth not enlarged ANT CHEST WALL without mass or tenderness to palpation HEART S1-S2 regular without murmur gallops or clicks LUNGS clear to auscultation without wheeze rales or rhonchi , full symmetric expansion BACK exam is no CVA tenderness or mass ABDOMEN soft nondistended positive bowel sounds no guarding rebound rigidity LYMPH NODES no cervical, axillary or inguinal adenopathy noted EXTREMITIES no clubbing cyanosis or significant edema, peripheral pulses palpable +2 NEUROLOGIC cranial nerves II through XII appear grossly intact, strength is 5 out of 5 symmetrical no clonus or rigidity SKIN warm and dry with good turgor, no other rash or sores noted Results Labs CBC & Chem 7: 06/07/18 06:09 06/07/18 06:09 Imaging Impressions Chest X-Ray 06/07/18 05:58 CONCLUSION: 1. Elevation right hemidiaphragm, stable. 2. Cardiomegaly. Caprini VTE Risk Assessment Caprini VTE Risk Assessment: Moderate/High Risk (score >= 2) Caprini Risk Assessment Model: Point Value = 1 Point Value = 2 Point Value = 3 Point Value = 5 Age 41-60 Minor surgery BMI > 25 kg/m2 Swollen legs Varicose veins or History of unexplained or recurrent spontaneous Oral contraceptives or hormone replacement Sepsis (< 1 month) Serious lung disease, including pneumonia (< 1 month) Abnormal pulmonary function Acute myocardial infarction Congestive heart failure (< 1 month) History of inflammatory bowel disease Medical patient at bed rest Age 61-74 Arthroscopic surgery Major open surgery (> 45 min) Laparoscopic surgery (> 45 min) Malignancy Confined to bed (> 72 hours) Immobilizing plaster cast Central venous access Age >= 75 History of VTE Family history of VTE Factor V Leiden Prothrombin [id number] Lupus anticoagulant Anticardiolipin antibodies Elevated serum homocysteine Heparin-induced thrombocytopenia Other congenital or acquired thrombophilia Stroke (< 1 month) Elective arthroplasty Hip, pelvis, or leg fracture Acute spinal cord injury (< 1 month) Prophylaxis Regimen: Total Risk Factor Score Risk Level Prophylaxis Regimen 0-1 Low Early ambulation 2 Moderate Order ONE of the following: *Sequential Compression Device (SCD) *Heparin 5000 units SQ BID 3-4 Higher Order ONE of the following medications: *Heparin 5000 units SQ TID *Enoxaparin/Lovenox 40 mg SQ daily (WT < 150 kg, CrCl > 30 mL/min) *Enoxaparin/Lovenox 30 mg SQ daily (WT < 150 kg, CrCl > 10-29 mL/min) *Enoxaparin/Lovenox 30 mg SQ BID (WT < 150 kg, CrCl > 30 mL/min) AND/OR *Sequential Compression Device (SCD) 5 or more Highest Order ONE of the following medications: *Heparin 5000 units SQ TID (Preferred with Epidurals) *Enoxaparin/Lovenox 40 mg SQ daily (WT < 150 kg, CrCl > 30 mL/min) *Enoxaparin/Lovenox 30 mg SQ daily (WT < 150 kg, CrCl > 10-29 mL/min) *Enoxaparin/Lovenox 30 mg SQ BID (WT < 150 kg, CrCl > 30 mL/min) AND *Sequential Compression Device (SCD) Assessment and Plan Plan HYPERTENSIVE EMERGENCY - much better controlled, cont bp control. Medical noncompliance, counseled at length re compliance with medication, bp monitoring and followup TAVARES - likely mild prerenal and realted to uncontrolled htn TROPONIN ELEVATION, not acs, related to uncontrolled bp and tavares likely, discussed if troponins are negative ok to dc home later today for outpt followup ok to dc home for outpt follow up if last set of cardiac enzymes are stable. discussed w patient follow up w pcp. H&P: Quality VTE Deep Vein Thrombosis/Pulmonary Embolism Present on Admission: No
[2018-06-07 13:43] LABS: Troponin I 0.11 ng/mL (0.02-0.05)
[2018-06-07 13:58] LABS: CKMB Percent 0.8 % (0.0-4.0); Creatine Kinase MB 1.6 ng/mL (0.5-3.6)
--- NOTE | 2018-06-07 15:47 | ECG ---
Date Performed: 06/07/2018 Time Performed: 06:13:15 PTAGE: 67 years EKG: Sinus rhythm WITH OCCASIONAL SUPRAVENTRICULAR PREMATURE COMPLEXES MODERATE INTRAVENTRICULAR CONDUCTION DELAY Sinc e the previous tracing, no significant change noted BORDERLINE ECG PREVIOUS TRACING : 12/11/2016 09.52 DOCTOR: Radha Schaeffer Interpretating Date/Time 06/07/2018 15:45:13
== END 2018-06-07 14:56 | disposition home or self-care (01) ==
LOC: NEDA 04:34 → NEPE 04:34 → NEDA 12:01 → NEPHCDU 12:06
PROVIDERS: ADMIT Internal Medicine; ATTEND Internal Medicine

== ENCOUNTER 2018-08-10 22:45 | Observation (INO) ==
--- NOTE | 2018-08-10 23:24 | ED ---
HPI General Chief Complaint: Hypertension Stated Complaint: High BP Time Seen by Provider: 08/10/18 23:08 Source: patient Mode of arrival: ambulatory Limitations: no limitations History of Present Illness HPI narrative: 68-year-old female presents for evaluation of 2 days of pressure in her chest. Patient states that she felt a pressure sensation in her chest starting yesterday, and she gets this when her blood pressure is elevated, so she checked her blood pressure and it was elevated with systolics in the 180s- 190s. Patient was seen for similar symptoms in May. She denies shortness of breath or diaphoresis. Onset (ago): day(s) (1) Duration: intermittent Onset: during rest Pain location: Reports left chest Severity: mild Quality: Reports other (pressure) Pain radiation: Reports none Relieving factors: medication-other (losartan, clonidine) Exacerbating factors: nothing Associated symptoms: Denies nausea, vomiting, diaphoresis, dyspnea, syncope, palpitations, fever, cough and leg swelling Treatments prior to arrival chest pain: Reports none Related Data Previous Rx's Medication Instructions Recorded aspirin 325 mg PO DAILY #30 tab 06/07/18 losartan 100 mg PO DAILY 30 Days #30 tab 08/11/18 metoprolol tartrate 25 mg PO BID 30 Days #60 tab 08/11/18 pravastatin 40 mg PO DAILY 30 Days #30 tab 08/11/18 Allergies Allergy/AdvReac Type Severity Reaction Status Date / Time No Known Allergies Allergy Verified 08/10/18 05:35 Review of Systems ROS: all other systems reviewed are negative [facility] Medical History Medical History History of hysterectomy (Acute) Hypertension (Acute) Social History Social History Substance History: No History of Abuse Second Hand Smoke Exposure: No Smoking Status: Never smoker How Often Do You Have a Drink Containing Alcohol: Never Recent Travel in [facility] within the Last 8 Weeks: No Recent Out of Country Travel within the Last 8 Weeks: No Immunization History Tetanus Immunization: Unsure Exam Narrative Exam Narrative: GENERAL: Awake, alert, no acute distress SKIN: Focused skin assessment warm/dry. HEAD: Atraumatic. Normocephalic. EYES: Pupils equal and round. No scleral icterus. No injection or drainage. ENT: No nasal bleeding or discharge. Mucous membranes pink and moist. NECK: Trachea midline. No JVD. CARDIOVASCULAR: Regular rate and rhythm. No murmur appreciated. RESPIRATORY: No accessory muscle use. Clear to auscultation. Breath sounds equal bilaterally. GASTROINTESTINAL: Abdomen soft, non-tender, nondistended. Hepatic and splenic margins not palpable. MUSCULOSKELETAL: No obvious deformities. No clubbing. No cyanosis. No edema. NEUROLOGICAL: Awake and alert. No obvious cranial nerve deficits. Motor grossly within normal limits. Normal speech. PSYCHIATRIC: Appropriate mood and affect; insight and judgment normal. Course Initial Documented Vital Signs Temperature 97.7 F 08/10/18 22:49 Pulse Rate 67 08/10/18 22:49 Respiratory Rate 18 08/10/18 22:49 Blood Pressure 188/91 H 08/10/18 22:49 Pulse Oximetry 95 08/10/18 22:49 Last Documented Vital Signs Temperature 97.9 F 08/11/18 15:20 Pulse Rate 69 08/11/18 15:20 Respiratory Rate 18 08/11/18 12:00 Blood Pressure 140/81 08/11/18 15:20 Pulse Oximetry 95 08/11/18 12:00 Critical Care Time Critical Care Time: Yes Total Critical Care Time: 30 Attestation: Aggregate critical care time was 30 minutes. Time to perform other separately billable procedures was not included in the critical care time. My time did not include minutes spent treating any other patients simultaneously or on activities that did not directly contribute to the patient's treatment. The services I provided to this patient were to treat and/or prevent clinically significant deterioration that could result in: Myocardial infarction, CVA, I provided critical care services requiring my management, as noted below: Chart data review, documentation time, medication orders and management, vital sign assessments/reviewing monitor data, ordering and reviewing lab tests, ordering and interpreting/reviewing x-rays and diagnostic studies, care of the patient and discussion of the patient with the admitting physicians. Medical Decision Making MDM Narrative Medical decision making narrative: 68-year-old female initially presented with complaint of hypertension, however upon further questioning patient states "I knew my blood pressure was high because I got pressure in my chest, and this happens when her blood pressure is high". Will transfer patient to monitored bed for ACS rule out. Will check EKG, troponins, chest x-ray. No leg pain or swelling, recent travel, recent surgery so I do not suspect pulmonary embolism. Patient accepted in transfer of care for management of hypertensive crisis and to assess complaint of chest pain with cardiac enzymes EKG rule out acute coronary syndrome/GA; patient with similar presentation 06/07/18 Patient administered nitroglycerin with good blood pressure response; patient with renal insufficiency essentially unchanged from May; troponin I is again elevated at 0.1 most likely reflects strain of uncontrolled hypertension. Patient is prescribed aspirin clonidine and losartan, states compliant; poorly controlled blood pressure Call placed to medicine service for observation admission Medical Screen Exam Complete: Yes Emergency Medical Condition: Yes Differential Diagnosis Differential Diagnosis: Hypertensive crisis, chest pain, ACS, GA, dissection, CVA, ICH Medical Records Medical records reviewed: Yes I reviewed the patient's medical records. Lab Data Lab results reviewed: Yes I reviewed the patient's lab results. Result diagrams: 08/10/18 23:50 08/10/18 23:50 Lab Results 08/10/18 08/10/18 08/11/18 Range/Units 23:50 23:50 00:40 WBC 13.5 H (4.0-11.0) th/mm3 RBC 4.53 (4.00-5.30) mil/mm3 Hgb 13.5 (11.6-15.3) gm/dL Hct 41.5 (35.0-46.0) % MCV 91.8 (80.0-100.0) fL MCH 29.9 (27.0-34.0) pg MCHC 32.6 (32.0-36.0) % RDW 13.6 (11.6-17.2) % Plt Count 277 (150-450) th/mm3 MPV 8.0 (7.0-11.0) fL Prelim Diff (Auto) Slide review pending Neut % (Auto) 19.8 (16.0-70.0) % Lymph % (Auto) 73.2 H (9.0-44.0) % [place] % (Auto) 5.3 (0.0-8.0) % Eos % (Auto) 1.1 (0.0-4.0) % Baso % (Auto) 0.6 (0.0-2.0) % Neut # (Auto) 2.7 (1.8-7.7) th/mm3 Lymph # (Auto) 9.9 H (1.0-4.8) th/mm3 [place] # (Auto) 0.7 (0.0-0.9) th/mm3 Eos # (Auto) 0.1 (0.0-0.4) th/mm3 Baso # (Auto) 0.1 (0.0-0.2) th/mm3 WBC Differential Manual diff final Seg Neuts % (Manual) 16 (16-70) % Lymphocytes % (Manual) 68 H (9-44) % Atypical Lymphs % (Man) 11 H (0-0) % Monocytes % (Manual) 3 (0-8) % Eosinophils % (Manual) 2 (0-4) % Abs Neuts (Manual) 2.2 (1.8-7.7) th/mm3 Differential Comment . Platelet Estimate Normal (Normal) Platelet Morphology Normal (Normal) [place] Bodies Present H (None) Acanthocytes (Spur) Occ H (None) Keratocytes Occ H (None) PT 10.4 (9.8-11.6) sec INR 1.0 Ratio APTT 21.2 L (23.4-31.7) sec Sodium 138 (136-145) meq/L Potassium 4.3 (3.5-5.1) meq/L Chloride 104 (98-107) meq/L Carbon Dioxide 25.9 (21.0-32.0) meq/L Anion Gap 8 (5-15) meq/L BUN 25 H (7-18) mg/dL Creatinine 1.26 H (0.50-1.00) mg/dL Estimated GFR 51 L (>89) mL/min Random Glucose 77 (74-106) mg/dL Calcium 8.6 (8.5-10.1) mg/dL Total Bilirubin 0.8 (0.2-1.0) mg/dL AST 29 (15-37) U/L ALT 16 (10-53) U/L Alkaline Phosphatase 81 (45-117) U/L Troponin I 0.10 H (0.02-0.05) ng/mL Total Protein 8.5 H (6.4-8.2) g/dL Albumin 4.0 (3.4-5.0) g/dL 08/11/18 08/11/18 Range/Units 03:10 11:34 WBC (4.0-11.0) th/mm3 RBC (4.00-5.30) mil/mm3 Hgb (11.6-15.3) gm/dL Hct (35.0-46.0) % MCV (80.0-100.0) fL MCH (27.0-34.0) pg MCHC (32.0-36.0) % RDW (11.6-17.2) % Plt Count (150-450) th/mm3 MPV (7.0-11.0) fL Prelim Diff (Auto) Neut % (Auto) (16.0-70.0) % Lymph % (Auto) (9.0-44.0) % [place] % (Auto) (0.0-8.0) % Eos % (Auto) (0.0-4.0) % Baso % (Auto) (0.0-2.0) % Neut # (Auto) (1.8-7.7) th/mm3 Lymph # (Auto) (1.0-4.8) th/mm3 [place] # (Auto) (0.0-0.9) th/mm3 Eos # (Auto) (0.0-0.4) th/mm3 Baso # (Auto) (0.0-0.2) th/mm3 WBC Differential Seg Neuts % (Manual) (16-70) % Lymphocytes % (Manual) (9-44) % Atypical Lymphs % (Man) (0-0) % Monocytes % (Manual) (0-8) % Eosinophils % (Manual) (0-4) % Abs Neuts (Manual) (1.8-7.7) th/mm3 Differential Comment Platelet Estimate (Normal) Platelet Morphology (Normal) [place] Bodies (None) Acanthocytes (Spur) (None) Keratocytes (None) PT (9.8-11.6) sec INR Ratio APTT (23.4-31.7) sec Sodium (136-145) meq/L Potassium (3.5-5.1) meq/L Chloride (98-107) meq/L Carbon Dioxide (21.0-32.0) meq/L Anion Gap (5-15) meq/L BUN (7-18) mg/dL Creatinine (0.50-1.00) mg/dL Estimated GFR (>89) mL/min Random Glucose (74-106) mg/dL Calcium (8.5-10.1) mg/dL Total Bilirubin (0.2-1.0) mg/dL AST (15-37) U/L ALT (10-53) U/L Alkaline Phosphatase (45-117) U/L Troponin I 0.10 H 0.15 H (0.02-0.05) ng/mL Total Protein (6.4-8.2) g/dL Albumin (3.4-5.0) g/dL Imaging Data Radiologist's impression: Chest X-Ray 08/10/18 23:16 CONCLUSION: Mild cardiomegaly. Clear lungs. ECG Data EKG Prior to Arrival: No Attestation: I personally reviewed and interpreted this ECG as follows: (EKG normal sinus rhythm rate 67 interval conduction delay no acute ST elevation essentially unchanged from prior study 05/2018) Prior ECG tracings: available for review Discharge Plan Discharge Disposition Patient Disposition: ED Admit(ED Internal Use Only) Discharge Condition Condition: Stable Discharge Order Discharge Orders: Discharge Order (Routine); Ordered 08/11/18 Ordered By: Saima Gaspar ED Use Only Admit Order (Routine); Ordered 08/11/18 Ordered By: Shama Medrano Discharge Details Anticipated Discharge Date: 08/11/18 Discharge Comment: Ok to discharge if SBP < 160s. Diagnosis: Hypertensive crisis, Elevated troponin I level Physicians Team ED Provider: Shama Medrano Primary Care Provider: Primary Care Enrique,Riddhi Attending Provider: Sharon Arnold Other Providers: [facility],Insurance Status ED Status: Left Department Discharge Information Discharge Date/Time: 08/11/18 03:20
[2018-08-11 00:07] LABS: Baso # (Auto) 0.1 th/mm3 (0.0-0.2); Baso % (Auto) 0.6 % (0.0-2.0); Eos # (Auto) 0.1 th/mm3 (0.0-0.4); Eos % (Auto) 1.1 % (0.0-4.0); Hematocrit 41.5 % (35.0-46.0); Hemoglobin 13.5 gm/dL (11.6-15.3); Lymph # (Auto) 9.9 th/mm3 (1.0-4.8); Lymph % (Auto) 73.2 % (9.0-44.0); Mean Corpuscular HGB Conc 32.6 % (32.0-36.0); Mean Corpuscular Hemoglobin 29.9 pg (27.0-34.0); Mean Corpuscular Volume 91.8 fL (80.0-100.0); Mono # (Auto) 0.7 th/mm3 (0.0-0.9); Mono % (Auto) 5.3 % (0.0-8.0); Neut # (Auto) 2.7 th/mm3 (1.8-7.7); Neut % (Auto) 19.8 % (16.0-70.0); Platelet Count 277 th/mm3 (150-450); Red Blood Count 4.53 mil/mm3 (4.00-5.30); Red Cell Distribution Width 13.6 % (11.6-17.2); White Blood Count 13.5 th/mm3 (4.0-11.0)
--- NOTE | 2018-08-11 00:07 | XR ---
EXAM DATE: 08/11/2018 12:01 AM EST AGE/SEX: 68 years / Female INDICATIONS: Chest pressure, high blood pressure per patient. CLINICAL DATA: This is the patient's initial encounter. Patient reports that signs and symptoms have been present for 1 day and indicates a pain score of 0/10. MEDICAL/SURGICAL HISTORY: Hypertension. None. COMPARISON: [facility] [place], CHEST 1V SINGLE AP, 06/07/2018. . FINDINGS: A single AP view of the chest demonstrates the lungs to be symmetrically aerated without evidence of mass, infiltrate or effusion. Eventration of the right hemidiaphragm is stable. Stable mild cardiomeg bowen. No pulmonary vascular engorgement.. Osseous structures are intact. CONCLUSION: Mild cardiomegaly. Clear lungs. Electronically signed by: Nikhil Tom MD Board Certified Radiologist 08/11/2018 12:05 AM EST
[2018-08-11 00:26] LABS: Anion Gap 8 meq/L (5-15); Aspartate Aminotransferase 29 U/L (15-37); Blood Urea Nitrogen 25 mg/dL (7-18); Calcium 8.6 mg/dL (8.5-10.1); Carbon Dioxide 25.9 meq/L (21.0-32.0); Chloride 104 meq/L (98-107); Glomerular Filtration Rate 51 mL/min (>89); Glucose,Random 77 mg/dL (74-106); Sodium 138 meq/L (136-145)
[2018-08-11 00:28] LABS: Alanine Aminotransferase 16 U/L (10-53); Alkaline Phosphatase 81 U/L (45-117); Total Protein 8.5 g/dL (6.4-8.2)
[2018-08-11 00:30] LABS: Potassium 4.3 meq/L (3.5-5.1)
[2018-08-11 01:02] LABS: Activated Partial Thrombo Time 21.2 sec (23.4-31.7); Prothrombin Time 10.4 sec (9.8-11.6)
[2018-08-11 01:07] LABS: Atypical Lymphs 11 % (0-0); Eosinophils 2 % (0-4); Lymphocytes 68 % (9-44); Monocytes 3 % (0-8)
[2018-08-11 01:08] LABS: Platelet Estimate Normal (Normal); Platelet Morphology Normal (Normal)
[2018-08-11 01:09] LABS: Acanthocytes Occ; Howell-Jolly Bodies Present
[2018-08-11] MEDS ORDERED: Acetaminophen 325 MG Tablet PO PRN (01:46)
[2018-08-11] MEDS ORDERED: Bisacodyl 10 MG Supp RECTAL PRN (01:46)
[2018-08-11] MEDS ORDERED: Morphine Sulfate Inj 2 MG/ML Vial IV.PUSH PRN (01:47)
[2018-08-11] MEDS ORDERED: Sod Chloride 0.9% Inj 1,000 ML IV.CONT SCH (02:00)
[2018-08-11] MEDS ORDERED: hydrALAZINE HCl Inj 20 MG/ML Vial IV.PUSH ONE (02:01)
--- NOTE | 2018-08-11 02:04 | P.HPIM ---
History of Present Illness Primary Care Physician: No Primary Care Physician History of Present Illness: This is a 68-year-old female with a PMH of HTN who presented to ER with complaints of elevated BP. Seen in ER on 07/10/18 for similar complaints, however appears she left before being seen. Returns now w/ ongoing complaints of elevated BP, "think I ate something that made it go up". Pt is very poor historian, difficult to get accurate information. States she is on Losartan 100mg, however has been taking it on and off over the last several months for unknown reasons despite having the medications at home. States she was seen "in the clinic" two days ago and give 12 tablets of Clonidine to take BID, thinks she took some today along w/ Losartan but isn't sure. Pt reported to have c/o chest pain, however upon further questioning denies any episodes of chest pain. On arrival, BP 222/107, HR 68, O2 sat 96% on RA, Afebrile. S/p NTG w/ improvement, BP 166/80, HR 61. CBC unremarkable except for WBC 13.5, appears chronic. INR 1.0. Creatinine 1.26, previously 1.33 on 06/07/2018. Troponin 0 0.10, previously 0.11 and 0.12 on 06/07/2018. CXR with no acute findings. Pt initially wanting to LEAVE AMA, however repeat BP 190's and finally agreeable to staying. Diagnosis (1) HTN (hypertension): (2) Elevated troponin: (3) Dehydration: Review of Systems PAST FAMILY HISTORY: Reviewed. No h/o DM or CAD Review of Systems: all other systems reviewed are negative [facility] Medical History Medical History History of hysterectomy (Acute) Hypertension (Acute) Social History Social History Substance History: No History of Abuse Second Hand Smoke Exposure: No Smoking Status: Never smoker How Often Do You Have a Drink Containing Alcohol: Never Recent Travel in [facility] within the Last 8 Weeks: No Recent Out of Country Travel within the Last 8 Weeks: No Immunization History Tetanus Immunization: Unsure Medications and Allergies Allergies Allergy/AdvReac Type Severity Reaction Status Date / Time No Known Allergies Allergy Verified 08/10/18 05:35 Home Medications Medication Instructions Recorded Confirmed Type clonidine HCl 0.1 mg PO BID 08/10/18 08/10/18 History Active Medications: Active Medications Acetaminophen (Tylenol) 650 mg PO Q4H PRN PRN Reason: Temp > 100.4 Al Hydroxide/Mg Hydroxide (Milk Of Magnesia Liq) 30 ml PO Q12H PRN PRN Reason: Mild Constipation Aspirin (Ecotrin) 325 mg PO DAILY [facility] Bisacodyl (Dulcolax Supp) 10 mg RECTAL DAILY PRN PRN Reason: SEVERE CONSITIPATION Hydralazine HCl (Apresoline Inj) 10 mg IV.PUSH ONCE ONE Stop: 08/11/18 02:02 Sodium Chloride (Ns Inj) 1,000 mls @ 100 mls/hr IV.CONT .Q10H RAMÓN Last Admin: 08/11/18 01:53 Dose: 100 mls/hr Lactulose (Lactulose Liq) 30 ml PO DAILY PRN PRN Reason: SEVERE CONSITIPATION Metoprolol Tartrate (Lopressor) 25 mg PO BID [facility] Morphine Sulfate (Morphine Inj) 2 mg IV.PUSH Q4H PRN PRN Reason: PAIN SCALE 6 TO 10 Ondansetron HCl (Zofran Inj) 4 mg IV.PUSH Q6H PRN PRN Reason: NAUSEA OR VOMITING Pravastatin Sodium (Pravachol) 40 mg PO DAILY [facility] Senna/Docusate Sodium (Angelica-Colace) 1 tab PO BID [facility] Sennosides (Senokot) 17.2 mg PO Q12H PRN PRN Reason: Moderate Constipation Sodium Chloride (Ns Flush) 2 ml IV.FLUSH UNSCH PRN PRN Reason: FLUSH AFTER USING IV ACCESS Sodium Chloride (Ns Flush) 2 ml IV.FLUSH BID [facility] Sodium Chloride (Ns Flush) 2 ml IV.FLUSH PRN PRN PRN Reason: FLUSH AFTER USING IV ACCESS Physical Exam Vital signs: Vital Signs 08/10/18 22:49 08/10/18 23:53 08/11/18 01:28 Temperature 97.7 F Pulse Rate 67 68 61 Respiratory Rate 18 18 18 Blood Pressure 188/91 H 222/107 H 166/80 H Pulse Oximetry 95 96 95 Intake & Output 08/10/18 08/10/18 08/11/18 06:59 18:59 06:59 Weight 97.976 kg Narrative: PE: GENERAL: Middle-aged black female in no acute distress. SKIN: Focused skin assessment warm and dry. HEENT: PERRLA, EOMI. No scleral icterus or conjunctival pallor. No lid lag or facial droop. CARDIOVASCULAR: Regular rate and rhythm. No obvious murmurs to auscultation. No chest tenderness to palpation. RESPIRATORY: No obvious rhonchi or wheezing. Clear to auscultation. Breath sounds equal bilaterally. GASTROINTESTINAL: Abdomen soft, non-tender, nondistended. BS normal. MUSCULOSKELETAL: Extremities without clubbing, cyanosis, or edema. No obvious deformities. NEUROLOGICAL: Awake, alert and oriented x4. No focal neurologic deficits. Moving both upper and lower extremities spontaneously. PSYCHIATRIC: Appropriate mood and affect. Insight and judgment normal. Results Labs CBC & Chem 7: 08/10/18 23:50 08/10/18 23:50 Imaging Impressions Chest X-Ray 08/10/18 23:16 CONCLUSION: Mild cardiomegaly. Clear lungs. Caprini VTE Risk Assessment Caprini VTE Risk Assessment: No/Low Risk (score <= 1) Caprini Risk Assessment Model: Point Value = 1 Point Value = 2 Point Value = 3 Point Value = 5 Age 41-60 Minor surgery BMI > 25 kg/m2 Swollen legs Varicose veins or History of unexplained or recurrent spontaneous Oral contraceptives or hormone replacement Sepsis (< 1 month) Serious lung disease, including pneumonia (< 1 month) Abnormal pulmonary function Acute myocardial infarction Congestive heart failure (< 1 month) History of inflammatory bowel disease Medical patient at bed rest Age 61-74 Arthroscopic surgery Major open surgery (> 45 min) Laparoscopic surgery (> 45 min) Malignancy Confined to bed (> 72 hours) Immobilizing plaster cast Central venous access Age >= 75 History of VTE Family history of VTE Factor V Leiden Prothrombin [id number] Lupus anticoagulant Anticardiolipin antibodies Elevated serum homocysteine Heparin-induced thrombocytopenia Other congenital or acquired thrombophilia Stroke (< 1 month) Elective arthroplasty Hip, pelvis, or leg fracture Acute spinal cord injury (< 1 month) Prophylaxis Regimen: Total Risk Factor Score Risk Level Prophylaxis Regimen 0-1 Low Early ambulation 2 Moderate Order ONE of the following: *Sequential Compression Device (SCD) *Heparin 5000 units SQ BID 3-4 Higher Order ONE of the following medications: *Heparin 5000 units SQ TID *Enoxaparin/Lovenox 40 mg SQ daily (WT < 150 kg, CrCl > 30 mL/min) *Enoxaparin/Lovenox 30 mg SQ daily (WT < 150 kg, CrCl > 10-29 mL/min) *Enoxaparin/Lovenox 30 mg SQ BID (WT < 150 kg, CrCl > 30 mL/min) AND/OR *Sequential Compression Device (SCD) 5 or more Highest Order ONE of the following medications: *Heparin 5000 units SQ TID (Preferred with Epidurals) *Enoxaparin/Lovenox 40 mg SQ daily (WT < 150 kg, CrCl > 30 mL/min) *Enoxaparin/Lovenox 30 mg SQ daily (WT < 150 kg, CrCl > 10-29 mL/min) *Enoxaparin/Lovenox 30 mg SQ BID (WT < 150 kg, CrCl > 30 mL/min) AND *Sequential Compression Device (SCD) Assessment and Plan (1) HTN (hypertension): Code(s): I10 - Essential (primary) hypertension Status: Acute (2) Elevated troponin: Code(s): R74.8 - Abnormal levels of other serum enzymes Status: Acute (3) Dehydration: Code(s): E86.0 - Dehydration Status: Acute Plan A/P: 1. HTN: Uncontrolled, secondary to Non-Compliance w/ medications, takes meds intermittently, BP 220's on arrival, s/p NTG w/ BP down to 160's, monitor BP closely, antihypertensives as needed for BP >180. Start Metoprolol 2. Elevated Trop: Trop 0.10, no c/o chest pain, elevated trop chronic in comparison to previous labs, likely secondary to uncontrolled BP. Check serial cardiac enzymes, start ASA, Statin, Metoprolol, Cardiology consult as needed. 3. Dehydration: Renal Insufficiency chronic, GFR 51, monitor I/O, repeat labs in am. Check U/a and UDS 4. DVT Prophylaxis: SCD/Teds 5. Social work for d/c planning as needed. 6. Case discussed w/ ER physician at length, labs/records/imaging reviewed by me.
[2018-08-11 08:19] VITALS: RESP 18; TEMP 97.9; O2SAT 95
[2018-08-11] MEDS ORDERED: Metoprolol Tartrate 25 MG Tablet PO SCH (09:00)
[2018-08-11] MEDS ORDERED: Senna/Docusate Sodium 8.6/50 MG Tablet PO SCH (09:00)
--- NOTE | 2018-08-11 11:28 | ECG ---
Date Performed: 08/11/2018 Time Performed: 03:09:03 PTAGE: 68 years EKG: SINUS TACHYCARDIA NONSPECIFIC INTRAVENTRICULAR CONDUCTION DELAY ABNORMAL ECG PREVIOUS TRACING : 08/11/2018 01.24 Compared to previous tracing, heart rate has increased. DOCTOR: Austyn Toussaint Interpretating Date/Time 08/11/2018 11:27:24
--- NOTE | 2018-08-11 11:29 | ECG ---
Date Performed: 08/11/2018 Time Performed: 01:24:22 PTAGE: 68 years EKG: Sinus rhythm NONSPECIFIC INTRAVENTRICULAR CONDUCTION DELAY ABNORMAL ECG PREVIOUS TRACING : 06/07/2018 06.13 Compared to previous tracing, PACs are no longer present. DOCTOR: Austyn Toussaint Interpretating Date/Time 08/11/2018 11:29:12
--- NOTE | 2018-08-11 14:16 | P.PNIM ---
patient was seen and examined today. looks comfortable- has minimal headache- otherwise no other complaints. BP overall improved. will continue with the current BP regimen and monitor BP. elevated troponin likely due to uncontrolled hypertension. dc planning; within the next 24 hrs if stable.
--- NOTE | 2018-08-11 14:18 | P.PNIM ---
Subjective Interval history: Follow-up for uncontrolled hypertension. Patient is seen sitting in bed, AAO x4. She reports she had a mild headache this morning secondary to her positioning in the stretcher and uncomfortable pillow overnight , however her headache has now resolved. She denies any lightheadedness or dizziness. She denies ever having any chest pain or shortness of breath. She states she did have a chemical stress test 1-2 years ago as outpatient that was reportedly unremarkable. She denies any recent chest pain or angina equivalents. She admits to recently not taking her blood pressure medications. She states she is getting low on her medications and does not have any upcoming appointments. She states she got frustrated that her PCP physicians Changing and she was seeing a different doctor every time. She states she is working on getting established with one physician. She denies any other medical complaints at this time. Explained would like to have her blood pressure better controlled prior to discharge, patient agrees. Physical Exam Vital signs: Vital Signs 08/10/18 22:49 08/10/18 23:53 08/11/18 01:28 Temperature 97.7 F Pulse Rate 67 68 61 Respiratory Rate 18 18 18 Blood Pressure 188/91 H 222/107 H 166/80 H Pulse Oximetry 95 96 95 08/11/18 02:56 08/11/18 03:13 08/11/18 03:41 Temperature 97.3 F L Pulse Rate 101 H 102 H 106 H Respiratory Rate 18 16 Blood Pressure 168/91 H 150/94 H Pulse Oximetry 96 08/11/18 04:00 08/11/18 05:13 08/11/18 05:20 Temperature 97.5 F L Pulse Rate 95 H 82 Respiratory Rate 12 Blood Pressure 127/67 Pulse Oximetry 92 L 96 08/11/18 08:00 08/11/18 09:37 08/11/18 12:00 Temperature 97.9 F Pulse Rate 86 79 73 Respiratory Rate 18 18 Blood Pressure 148/80 H 165/87 H Pulse Oximetry 95 95 Intake & Output 08/10/18 08/11/18 08/11/18 18:59 06:59 18:59 Weight 97.976 kg Other: Date of Last Bowel Movement 08/10/18 Weight On Admission 97.976 kg Narrative: GENERAL: Well-nourished, well-developed pleasant AA female patient in NAD. SKIN: Warm and dry. No rash. HEENT: Atraumatic. Pupils equal and round. Mucous membranes pink and moist. CARDIOVASCULAR: Regular rate and rhythm. No murmur appreciated. RESPIRATORY: No accessory muscle use. Clear to auscultation. Breath sounds equal bilaterally. GASTROINTESTINAL: Abdomen soft, non-tender, nondistended. Normoactive bowel sounds x4. MUSCULOSKELETAL: No obvious deformities. Extremities without clubbing, cyanosis , or edema. NEUROLOGICAL: Awake and alert. No obvious cranial nerve deficits. Moving all extremities spontaneously. Normal speech. PSYCHIATRIC: Appropriate mood and affect; insight and judgment normal. Results Labs CBC & Chem 7: 08/10/18 23:50 08/10/18 23:50 Imaging Imaging: Impressions Chest X-Ray 08/10/18 23:16 CONCLUSION: Mild cardiomegaly. Clear lungs. Assessment and Plan (1) HTN (hypertension): Code(s): I10 - Essential (primary) hypertension Status: Acute (2) Elevated troponin: Code(s): R74.8 - Abnormal levels of other serum enzymes Status: Acute (3) Dehydration: Code(s): E86.0 - Dehydration Status: Acute Plan 68-year-old female with a PMH of HTN who presented to ER with complaints of elevated BP. Accelerated hypertension with hypertensive urgency: BP uncontrolled likely secondary to Non-Compliance w/ medications, takes meds intermittently, BP 220's on arrival, s/p NTG w/ BP down to 160's -Restart patient's losartan 100 mg daily -Started on metoprolol 25 mg bid -Monitor BP, adjust antihypertensives as needed -Strongly encouraged to keep a BP log and follow-up with PCP Elevated Troponin: Trop 0.10, no c/o chest pain, elevated trop chronic in comparison to previous labs, likely secondary to chronic uncontrolled BP. -Serial troponin 0 0.10, 0.10, 0.15consistent with all previous troponins on prior admissions -Started ASA, Statin, Metoprolol -No complaints of chest pain or angina equivalents -Reportedly had unremarkable chemical stress test as outpatient 1-2 years ago per the patient Dehydration: with acute on chronic Renal Insufficiency, GFR 51 -monitor I/O -repeat labs improved with Cr 1.26 -encouraged to continue oral hydration after discharge DVT Prophylaxis: SCD/Teds Discharge Planning: Will plan to discharge if BP better controlled with SBP less than 160s Discharge patient to home Condition on discharge: Stable Cardiac diet as tolerated Ad Darcie activity Rx written: Losartan 100 mg daily, metoprolol 25 mg bid Follow-up with primary care physician Progress Note: Quality VTE Deep Vein Thrombosis/Pulmonary Embolism Present on Admission: No
[2018-08-11 15:22] VITALS: BP 140/81; PULSE 69
== END 2018-08-11 16:04 | disposition home or self-care (01) ==
LOC: NEPD 22:45 → NEDA 22:45 → NEPFCDU 08-11 03:20
PROVIDERS: ADMIT Internal Medicine; ATTEND Internal Medicine
DX: Z79.82 Long term (current) use of aspirin; Z91.14 Patient's other noncompliance with medication regimen; E86.0 Dehydration; I13.10 Hypertensive heart and chronic kidney disease without heart failure, with stage 1 through stage 4 chronic kidney disease, or unspecified chronic kidney disease; I16.0 Hypertensive urgency; N18.9 Chronic kidney disease, unspecified; R74.8 Abnormal levels of other serum enzymes; Z79.899 Other long term (current) drug therapy
CPT/HCPCS: 71010; 71045; 80053; 84484; 85025; 85610; 85730; 93005; 96374; 99291; G0378; J0360; J7030